=== PATIENT | male | born 1985 | race Caucasian/White ===

== ENCOUNTER 2019-02-01 22:30 | Emergency (ER) | payer OTHER ==
[2019-02-01 22:39] VITALS: BP 125/83; PULSE 86; O2SAT 100
--- NOTE | 2019-02-01 22:50 | ERPHSYRPT ---
- History of Present Illness Source: patient Exam Limitations: no limitations Physician History: patient is a 33-year-old white male who reports that he was wrestling at work approximately a week ago when he rolled his right ankle. He has been walking on it and working on it however he has swelling and discoloration from the distal fibular area on down to the foot. Pulses are intact sensation is intact he is able to move his toes and his ankle joint. He denies any other injury Method of Injury: twisted Occurred: last week Quality: constant, throbbing Severity of Pain-Max: moderate Severity of Pain-Current: moderate Lower Extremities Pain: leg: right, ankle: right Modifying Factors: Improves With: nothing Associated Symptoms: none Allergies/Adverse Reactions: No Known Drug Allergies Allergy (Unverified 02/01/19 22:50) Home Medications: Alprazolam [Xanax] 0.5 mg PO DAILY 02/01/19 [History] Dextroamphetamine/Amphetamine [Adderall 20 mg Tablet] 20 mg PO DAILY 02/01/19 [ History] - Review of Systems Constitutional: No Fever, No Chills Eyes: No Symptoms Ears, Nose, & Throat: No Symptoms Respiratory: No Cough, No Dyspnea Cardiac: No Chest Pain, No Edema, No Syncope Abdominal/Gastrointestinal: No Abdominal Pain, No Nausea, No Vomiting, No Diarrhea Genitourinary Symptoms: No Dysuria Musculoskeletal: Back Pain, Neck Pain, Joint Redness, Joint Pain, Joint Swelling Skin: No Rash Neurological: No Dizziness, No Focal Weakness, No Sensory Changes Psychological: No Symptoms Endocrine: No Symptoms All Other Systems: Reviewed and Negative - Nursing Vital Signs Nursing Vital Signs: Initial Vital Signs Temperature 97.5 F 02/01/19 22:37 Pulse Rate 86 02/01/19 22:37 Respiratory Rate 17 02/01/19 22:37 Blood Pressure 125/83 02/01/19 22:37 O2 Sat by Pulse Oximetry 100 02/01/19 22:37 Pain Scale Pain Intensity 7 - Physical Exam General Appearance: alert Eyes, Ears, Nose, Throat Exam: moist mucous membranes Neck Exam: non-tender, supple Cardiovascular/Respiratory Exam: chest non-tender, normal breath sounds, regular rate/rhythm, no respiratory distress Gastrointestinal/Abdominal Exam: non-tender, guarding Back Exam: normal inspection, No vertebral tenderness Legs Exam: right leg: bone tenderness, deformity, ecchymosis, pain, soft tissue tenderness, swelling Ankle Exam: right ankle: bone tenderness, deformity, ecchymosis, joint effusion , pain, soft tissue tenderness, swelling Foot Exam: right foot: ecchymosis Neuro/Tendon Exam: normal sensation, normal motor functions Mental Status Exam: alert, oriented x 3, cooperative Skin Exam: normal color, warm, dry SpO2: 100 - Radiology Exams Lower Leg X-ray Interpretation: Other (before x-rays could be obtained the patient left AMA) Ordered Tests: Active Orders 24 hr Category Date Time Status FOOT (MINIMUM 3 VIEWS) Stat Exams 02/01/19 Ordered LOWER LEG Stat Exams 02/01/19 Ordered - Progress Progress: unchanged - Departure Departure Disposition: AMA Clinical Impression: Ankle pain, right Condition: Stable Critical Care Time: No Additional Instructions: patient left the ER AMA before x-rays could be obtained
== END 2019-02-01 23:00 | disposition left against medical advice (07) ==
LOC: ED 22:30
DX: M25.571 Pain in right ankle and joints of right foot (principal); X50.1XXA Overexertion from prolonged static or awkward postures, initial encounter; Y93.72 Activity, wrestling
CPT/HCPCS: 99283

== ENCOUNTER 2019-03-17 05:25 | Emergency (ER) | payer OTHER ==
[2019-03-17 05:33] VITALS: O2SAT 100
[2019-03-17] MEDS ORDERED: Sodium Chloride 0.9% 1000 ML 1,000 ML IV STA (05:38)
[2019-03-17] MEDS ORDERED: TORAdol 30 mg Injection IV ONE (05:38)
[2019-03-17] MEDS ORDERED: Sodium Chloride 0.9% 1000 ML 1,000 ML ONE (05:43)
[2019-03-17] MEDS ORDERED: TORAdol 30 mg Injection ONE (05:43)
--- NOTE | 2019-03-17 05:52 | ERPHSYRPT ---
- History of Present Illness Source: patient Exam Limitations: no limitations Patient Subjective Stated Complaint: pt c/o pain to lt lower back radiating to front lower left abd. Triage Nursing Assessment: pt c/o lt lower back pain coming around to lt lower abd area. Pt is thrashing in bed, moaning, nauseaous. Pt gets relief with standing up and pacing. Abd rigid with hypo active bs x4 quad. tender on palpation. Physician History: Patient is a 33yo M who presents to ED with c/o acute onset left flank pain. Pain started about 2 hours [employer]. Pain described as an ache that radiates from flank to groin area. NO hematuria. No fevers. NO trauma. Pain is constant. NO specific worsening or improving factors. Allergies/Adverse Reactions: No Known Drug Allergies Allergy (Unverified 02/01/19 22:50) Home Medications: Alprazolam [Xanax] 0.5 mg PO DAILY 02/01/19 [History] Dextroamphetamine/Amphetamine [Adderall 20 mg Tablet] 20 mg PO DAILY 02/01/19 [ History] Hx Tetanus, Diphtheria Vaccination/Date Given: No Hx Influenza Vaccination/Date Given: No Hx Pneumococcal Vaccination/Date Given: No Immunizations Up to Date: No - Past Medical History Pertinent Past Medical History: Yes Neurological History: No Pertinent History ENT History: No Pertinent History Cardiac History: No Pertinent History Respiratory History: No Pertinent History Endocrine Medical History: No Pertinent History Musculoskeletal History: No Pertinent History GI Medical History: No Pertinent History History: No Pertinent History Psycho-Social History: Anxiety, Attention Deficit Disorder Male Reproductive Disorders: No Pertinent History - Past Surgical History Past Surgical History: Yes Neuro Surgical History: No Pertinent History Cardiac: No Pertinent History Respiratory: No Pertinent History Gastrointestinal: Hemorrhoidectomy Genitourinary: No Pertinent History Musculoskeletal: No Pertinent History Male Surgical History: No Pertinent History - Social History Smoking Status: Current every day smoker How long have you smoked: 10 yrs Exposure to second hand smoke: Yes Drug Use: none Patient Lives Alone: No - Review of Systems Constitutional: No Fever, No Chills Eyes: No Symptoms Ears, Nose, & Throat: No Symptoms Respiratory: No Cough, No Dyspnea Cardiac: No Chest Pain, No Edema, No Syncope Abdominal/Gastrointestinal: No Abdominal Pain, No Nausea, No Vomiting, No Diarrhea Genitourinary Symptoms: Flank Pain, No Dysuria Musculoskeletal: No Back Pain, No Neck Pain Skin: No Rash Neurological: No Dizziness, No Focal Weakness, No Sensory Changes Psychological: No Symptoms Endocrine: No Symptoms All Other Systems: Reviewed and Negative - Nursing Vital Signs Nursing Vital Signs: Initial Vital Signs Temperature 98.1 F 03/17/19 05:30 Pulse Rate 72 03/17/19 05:30 Respiratory Rate 20 03/17/19 05:30 Blood Pressure 133/78 03/17/19 05:30 O2 Sat by Pulse Oximetry 100 03/17/19 05:30 Pain Scale Pain Intensity [Left Abdomen] 7 Pain Intensity 4 - Physical Exam General Appearance: no apparent distress, alert Eye Exam: PERRL/EOMI Ears, Nose, Throat Exam: pharynx normal, moist mucous membranes Neck Exam: normal inspection, supple Respiratory Exam: normal breath sounds, lungs clear Cardiovascular Exam: regular rate/rhythm, No edema Gastrointestinal/Abdomen Exam: soft, No tenderness Back Exam: normal inspection, CVA tenderness, rash Extremity Exam: normal inspection, normal range of motion, No pedal edema Neurologic Exam: alert, oriented x 3, cooperative, sensation nml, No motor deficits Skin Exam: normal color, warm, dry, No rash SpO2 Interpretation: normal SpO2: 100 O2 Delivery: Room Air Ordered Tests: Active Orders 24 hr Category Date Time Status IV Insertion STAT Care 03/17/19 05:38 Active ABDOMEN AND PELVIS W/0 CONTRAS [CT] Stat Exams 03/17/19 05:40 Ordered CBC W DIFF Stat Lab 03/17/19 05:38 Completed CMP Stat Lab 03/17/19 05:38 Completed UA W/RFX UR CULTURE Stat Lab 03/17/19 05:38 Received Medication Summary Discontinued Medications Generic Name Dose Route Start Last Admin Trade Name Homeroq PRN Reason Stop Dose Admin Sodium Chloride 1,000 mls @ 999 mls/hr 03/17/19 05:38 03/17/19 05:45 Sodium Chloride 0.9% 1000 Ml IV 03/17/19 06:38 999 mls/hr .Q1H1M STA Administration Sodium Chloride Confirm 03/17/19 05:43 Sodium Chloride 0.9% 1000 Ml Administered 03/17/19 05:44 Dose 1,000 mls @ ud .ROUTE .STK-MED ONE Ketorolac Tromethamine 30 mg 03/17/19 05:38 03/17/19 05:46 Toradol 30 Mg Injection IV 03/17/19 05:39 30 mg STAT ONE Administration Ketorolac Tromethamine Confirm 03/17/19 05:43 Toradol 30 Mg Injection Administered 03/17/19 05:44 Dose 30 mg .ROUTE .STK-MED ONE Morphine Sulfate 4 mg 03/17/19 06:43 Morphine Sulfate 4 Mg Inj IV 03/17/19 06:44 STAT ONE Potassium Chloride 40 meq 03/17/19 06:37 Klor Con 10 Meq PO 03/17/19 06:38 STAT ONE Lab/Rad Data: Laboratory Result Diagrams 03/17/19 05:38 03/17/19 05:38 Laboratory Results 03/17/19 03/17/19 Range/Units 05:38 05:38 WBC 10.6 H (4.0-10.5) K/mm3 RBC 4.44 (4.1-5.6) M/mm3 Hgb 14.7 (12.5-18.0) gm/dl Hct 41.1 L (42-50) % MCV 92.6 (78-100) fl MCH 33.1 H (26-32) pg MCHC 35.8 (32-36) g/dl RDW 12.5 (11.5-14.0) % Plt Count 256 (150-450) K/mm3 MPV 10.0 (7.5-11.0) fl Gran % 51.1 (36.0-66.0) % Eos # (Auto) 0.38 (0-0.5) Absolute Lymphs (auto) 3.75 (1.0-4.6) Absolute Monos (auto) 0.97 (0.0-1.3) Lymphocytes % 35.5 (24.0-44.0) % Monocytes % 9.2 (0.0-12.0) % Eosinophils % 3.6 (0.00-5.0) % Basophils % 0.6 (0.0-0.4) % Absolute Granulocytes 5.41 (1.4-6.9) Basophils # 0.06 (0-0.4) Sodium 136 L (137-145) mmol/L Potassium 3.3 L (3.5-5.1) mmol/L Chloride 101 (98-107) mmol/L Carbon Dioxide 23 (22-30) mmol/L Anion Gap 15.4 H (5-15) MEQ/L BUN 19 (9-20) mg/dL Creatinine 1.07 (0.66-1.25) mg/dL Estimated GFR > 60.0 ML/MIN Glucose 105 (74-106) mg/dL Calcium 9.8 (8.4-10.2) mg/dL Total Bilirubin 0.50 (0.2-1.3) mg/dL AST 30 (17-59) U/L ALT 26 (0-50) U/L Alkaline Phosphatase 73 (38-126) U/L Serum Total Protein 7.4 (6.3-8.2) g/dL Albumin 4.7 (3.5-5.0) g/dL - Progress Progress Note: 03/17/19 06:45 Patient reassessed. Pain improved. Vitals stable. CT reveals ureterolithiasis Counseled pt/family regarding: lab results, diagnosis, rad results - Departure Departure Disposition: Home Clinical Impression: Flank pain, Ureterolithiasis Condition: Stable Critical Care Time: No Referrals: DOCTOR,NO FAMILY [Primary Care Provider] - Prescriptions: Hydrocodone/APAP 5/325 [Rowe 5/325 mg] 1 each PO Q6H PRN PRN #12 tablet MDD 4 PRN Reason: Pain Ketorolac Tromethamine [Toradol] 10 mg PO Q8H PRN PRN #20 tablet PRN Reason: Pain
[2019-03-17 05:57] LABS: Absolute Neutrophil Ct (ANC) 5.41 (1.4-6.9); BASOPHIL % 0.6 % (0.0-0.4); Basophil (Absolute #) 0.06 (0-0.4); Eosinophil % 3.6 % (0.00-5.0); Eosinophil (Absolute #) 0.38 (0-0.5); Hematocrit 41.1 % (42-50); Hemoglobin 14.7 gm/dl (12.5-18.0); Lymphocyte (Absolute #) 3.75 (1.0-4.6); Lymphocytes % 35.5 % (24.0-44.0); Mean Cell Volume 92.6 fl (78-100); Mean Corpuscular Hemoglobin 33.1 pg (26-32); Mean Corpuscular Hgb Concent. 35.8 g/dl (32-36); Monocyte (Absolute #) 0.97 (0.0-1.3); Monocytes % 9.2 % (0.0-12.0); Neutrophil % 51.1 % (36.0-66.0); Platelet Count 256 K/mm3 (150-450); Red Blood Count 4.44 M/mm3 (4.1-5.6); Red Cell Distribution Width 12.5 % (11.5-14.0); White Blood Count 10.6 K/mm3 (4.0-10.5)
[2019-03-17 06:10] LABS: ALBUMIN 4.7 g/dL (3.5-5.0); ALKALINE PHOSPHATASE 73 U/L (38-126); ANION GAP 15.4 MEQ/L (5-15); BLOOD UREA NITROGEN 19 mg/dL (9-20); CHLORIDE 101 mmol/L (98-107); Calcium 9.8 mg/dL (8.4-10.2); Carbon Dioxide 23 mmol/L (22-30); Creatinine 1 1.07 mg/dL (0.66-1.25); Glucose 105 mg/dL (74-106); Potassium 3.3 mmol/L (3.5-5.1); SGOT/AST 30 U/L (17-59); SGPT/ALT 26 U/L (0-50); SODIUM 136 mmol/L (137-145); Total Protein 7.4 g/dL (6.3-8.2)
[2019-03-17] MEDS ORDERED: Klor Con 10 MEQ PO ONE ×2 (06:37→06:45)
[2019-03-17] MEDS ORDERED: MORPHINE SULFATE 4 MG INJ IV ONE (06:43)
[2019-03-17] MEDS ORDERED: MORPHINE SULFATE 4 MG INJ ONE (06:45)
[2019-03-17 07:20] VITALS: BP 109/88; PULSE 76
--- NOTE | 2019-03-17 09:19 | XRAY ---
Indication: Left lower quadrant/flank pain. Difficulty urinating. Multiple contiguous axial images obtained through the abdomen and pelvis without contrast using renal stone protocol. Comparison: None Lung bases are clear. Heart is not enlarged. There is a 2-3 mm distal left ureter calculus just proximal to the UVJ (image 101, series 4). Proximal left ureter is slightly prominent up to 4-5 mm and there is mild hydronephrosis favoring partial obstructive uropathy. No perinephric fluid. Additional faint bilateral nephrocalcinosis. Noncontrasted stomach and bowel loops appear nonobstructed. Mild scattered colonic fecal debris throughout. Also mild sigmoid diverticulosis. Incidental calcified splenic granulomas. Remaining liver, gallbladder, pancreas, spleen, adrenal glands, kidneys, ureters, and bladder appear unremarkable for noncontrast exam. Mild scattered aortic calcifications without AAA. Osseous structures intact. Impression: 1. 2-3 mm distal left ureter calculus producing partial obstruction. Additional faint bilateral nephrocalcinosis. 2. Mild fecal stasis without obstruction, sigmoid diverticulosis, and evidence for granulomatous disease. Comment: Preliminary interpretation was made by [facility]. No discrepancy.
== END 2019-03-17 07:19 | disposition home or self-care (01) ==
LOC: ED 05:25
DX: R10.9 Unspecified abdominal pain (principal); N20.1 Calculus of ureter
CPT/HCPCS: 36000; 36415; 74176; 80053; 85025; 87086; 96374; 96375; 99284; J1885; J2270; A9270-GY

== ENCOUNTER 2019-12-05 20:22 | Observation (INO) | payer MEDICAID, OTHER ==
--- NOTE | 2019-12-05 20:30 | ERPHSYRPT ---
- History of Present Illness Time Seen by Provider: 12/05/19 20:25 Source: patient Exam Limitations: intoxication Physician History: Pt states for the past 3 years he has had daily suicidal thoughts. For the past 2 months pt states he has consumed 1/2 pint of vodka daily. Pt denies chest pain, shortness of air, fever, cough, abdominal pain; admits to numbness of his right 3rd, 4th & 5th toes for the past 18 months secondary to an injury of his right ankle. Allergies/Adverse Reactions: No Known Drug Allergies Allergy (Unverified 02/01/19 22:50) Home Medications: Alprazolam [Xanax] 0.5 mg PO DAILY 02/01/19 [History] Dextroamphetamine/Amphetamine [Adderall 20 mg Tablet] 20 mg PO DAILY 02/01/19 [History] Hx Tetanus, Diphtheria Vaccination/Date Given: No Hx Influenza Vaccination/Date Given: No Hx Pneumococcal Vaccination/Date Given: No Travel Risk - International Travel Have you traveled outside of the country in past 3 weeks: No - Coronavirus Screening Are you exhibiting any of the following symptoms?: No Close contact with a COVID-19 positive Pt in past 14-21 Days: No - Review of Systems Constitutional: No Fever Respiratory: No Cough, No Dyspnea Cardiac: No Chest Pain Abdominal/Gastrointestinal: No Abdominal Pain, No Nausea, No Vomiting, No Diarrhea Neurological: Sensory Changes (numbness of the right 3rd, 4th & 5th toes for the past 18 months.) Psychological: Suicidal Ideations All Other Systems: Reviewed and Negative - Past Medical History Pertinent Past Medical History: Yes Neurological History: No Pertinent History ENT History: No Pertinent History Cardiac History: No Pertinent History Respiratory History: No Pertinent History Endocrine Medical History: No Pertinent History Musculoskeletal History: No Pertinent History GI Medical History: No Pertinent History History: No Pertinent History Psycho-Social History: Anxiety, Attention Deficit Disorder Male Reproductive Disorders: No Pertinent History - Past Surgical History Past Surgical History: Yes Neuro Surgical History: No Pertinent History Cardiac: No Pertinent History Respiratory: No Pertinent History Gastrointestinal: Hemorrhoidectomy Genitourinary: No Pertinent History Musculoskeletal: No Pertinent History Male Surgical History: No Pertinent History - Social History Smoking Status: Current every day smoker How long have you smoked: 10 yrs Exposure to second hand smoke: Yes Drug Use: none Patient Lives Alone: No - Nursing Vital Signs Nursing Vital Signs: Initial Vital Signs Temperature 98.6 F 12/05/19 20:36 Pulse Rate 104 H 12/05/19 20:36 Respiratory Rate 18 12/05/19 20:36 Blood Pressure 136/92 12/05/19 20:36 O2 Sat by Pulse Oximetry 99 12/05/19 20:36 Pain Scale Pain Intensity 0 - Physical Exam General Appearance: alert Eye Exam: PERRL/EOMI Ears, Nose, Throat Exam: TMs normal, pharynx normal Neck Exam: normal inspection Respiratory Exam: lungs clear Cardiovascular Exam: normal heart sounds Gastrointestinal/Abdomen Exam: soft, normal bowel sounds Back Exam: normal inspection Extremity Exam: No pedal edema Neurologic Exam: alert, cooperative, slurred speech, other (decreased sensation of right 3rd, 4th & 5th toes(ongoing for 18 months).), No motor deficits Skin Exam: warm, dry SpO2 Interpretation: normal SpO2: 98 O2 Delivery: Room Air - Course Nursing assessment & vital signs reviewed: Yes EKG Interpreted by Me: RATE (98), Sinus Rhythm, NORMAL AXIS, NORMAL INTERVALS - Radiology Exams Chest X-ray Interpretation: Interpreted by me, No Pneumonia Ordered Tests: Active Orders 24 hr Category Date Time Status Hot Repairman STAT Care 12/05/19 20:32 Active EKG-ER Only STAT Care 12/05/19 20:31 Active IV Insertion STAT Care 12/05/19 20:31 Active Pulse Oximetry (ED) STAT Care 12/05/19 20:31 Active CHEST 1 VIEW (PORTABLE) Stat Exams 12/05/19 20:32 Taken ACETAMINOPHEN Stat Lab 12/05/19 20:45 Completed CBC W DIFF Stat Lab 12/05/19 20:45 Completed CMP Stat Lab 12/05/19 20:45 Completed D-DIMER QUANTITATIVE Stat Lab 12/05/19 20:45 Completed ETHYL ALCOHOL Stat Lab 12/05/19 20:45 Completed MAGNESIUM Stat Lab 12/05/19 20:45 Completed NT PRO BNP Stat Lab 12/05/19 20:45 Completed SALICYLATE Stat Lab 12/05/19 20:45 Completed TROPONIN Q3H Lab 12/05/19 20:45 Completed TROPONIN Q3H Lab 12/05/19 23:45 Ordered TROPONIN Q3H Lab 12/06/19 02:45 Ordered TROPONIN Q3H Lab 12/06/19 05:45 Ordered TROPONIN Q3H Lab 12/06/19 08:45 Ordered UA W/RFX UR CULTURE Stat Lab 12/05/19 21:26 Completed Urine Triage Profile Stat Lab 12/05/19 21:26 Completed Medication Summary Discontinued Medications Generic Name Dose Route Start Last Admin Trade Name Marilyn PRN Reason Stop Dose Admin Sodium Chloride 1,000 mls @ 999 mls/hr 12/05/19 20:31 12/05/19 22:30 Sodium Chloride 0.9% 1000 Ml IV 12/05/19 21:31 Infused .Q1H1M STA Infusion Sodium Chloride Confirm 12/05/19 20:40 Sodium Chloride 0.9% 1000 Ml Administered 12/05/19 20:41 Dose 1,000 mls @ ud .ROUTE .STK-MED ONE Potassium Bicarbonate 25 meq 12/05/19 22:12 12/05/19 22:19 K-Lyte 25 Meq PO 12/05/19 22:13 25 meq STAT ONE Administration Potassium Bicarbonate Confirm 12/05/19 22:18 K-Lyte 25 Meq Administered 12/05/19 22:19 Dose 25 meq .ROUTE .STK-MED ONE Lab/Rad Data: Laboratory Result Diagrams 12/05/19 20:45 12/05/19 20:45 Laboratory Results 12/05/19 12/05/19 12/05/19 Range/Units 21:26 21:26 20:45 WBC (4.0-10.5) K/mm3 RBC (4.1-5.6) M/mm3 Hgb (12.5-18.0) gm/dl Hct (42-50) % MCV (78-100) fl MCH (26-32) pg MCHC (32-36) g/dl RDW (11.5-14.0) % Plt Count (150-450) K/mm3 MPV (7.5-11.0) fl Gran % (36.0-66.0) % Eos # (Auto) (0-0.5) Absolute Lymphs (auto) (1.0-4.6) Absolute Monos (auto) (0.0-1.3) Lymphocytes % (24.0-44.0) % Monocytes % (0.0-12.0) % Eosinophils % (0.00-5.0) % Basophils % (0.0-0.4) % Absolute Granulocytes (1.4-6.9) Basophils # (0-0.4) D-Dimer (215-500) ng/mL Sodium (137-145) mmol/L Potassium (3.5-5.1) mmol/L Chloride (98-107) mmol/L Carbon Dioxide (22-30) mmol/L Anion Gap (5-15) MEQ/L BUN (9-20) mg/dL Creatinine (0.66-1.25) mg/dL Estimated GFR ML/MIN Glucose (74-106) mg/dL Calcium (8.4-10.2) mg/dL Magnesium (1.6-2.3) mg/dL Total Bilirubin (0.2-1.3) mg/dL AST (17-59) U/L ALT (0-50) U/L Alkaline Phosphatase (38-126) U/L Troponin I < 0.012 (0.000-0.034) ng/mL NT-Pro-B Natriuret Pep (0-450) pg/mL Serum Total Protein (6.3-8.2) g/dL Albumin (3.5-5.0) g/dL Urine Color YELLOW (YELLOW) Urine Appearance CLEAR (CLEAR) Urine pH 5.0 (5-6) Ur Specific Lund 1.012 (1.005-1.025) Urine Protein NEGATIVE (Negative) Urine Ketones NEGATIVE (NEGATIVE) Urine Blood SMALL (0-5) Eben/ul Urine Nitrite NEGATIVE (NEGATIVE) Urine Bilirubin NEGATIVE (NEGATIVE) Urine Urobilinogen NEGATIVE (0-1) mg/dL Ur Leukocyte Esterase NEGATIVE (NEGATIVE) Urine WBC (Auto) NONE (0-5) /HPF Urine RBC (Auto) 0-2 (0-2) /HPF U Epithel Cells (Auto) NONE (FEW) /HPF Urine Bacteria (Auto) NONE (NEGATIVE) /HPF Urine Culture Reflexed NO (NO) Urine Glucose NEGATIVE (NEGATIVE) mg/dL Salicylates (2-20) mg/dL Urine Opiates Level NEGATIVE (NEGATIVE) Ur Methadone NEGATIVE (NEGATIVE) Acetaminophen (10-30) ug/ml Urine Barbiturates NEGATIVE (NEGATIVE) Ur Phencyclidine (PCP) NEGATIVE (NEGATIVE) Urine Amphetamine NEGATIVE (NEGATIVE) U Benzodiazepine Level NEGATIVE (NEGATIVE) Urine Cocaine NEGATIVE (NEGATIVE) Urine Marijuana (THC) POSITIVE (NEGATIVE) Ethyl Alcohol (0-10) mg/dL 12/05/19 12/05/19 12/05/19 Range/Units 20:45 20:45 20:45 WBC (4.0-10.5) K/mm3 RBC (4.1-5.6) M/mm3 Hgb (12.5-18.0) gm/dl Hct (42-50) % MCV (78-100) fl MCH (26-32) pg MCHC (32-36) g/dl RDW (11.5-14.0) % Plt Count (150-450) K/mm3 MPV (7.5-11.0) fl Gran % (36.0-66.0) % Eos # (Auto) (0-0.5) Absolute Lymphs (auto) (1.0-4.6) Absolute Monos (auto) (0.0-1.3) Lymphocytes % (24.0-44.0) % Monocytes % (0.0-12.0) % Eosinophils % (0.00-5.0) % Basophils % (0.0-0.4) % Absolute Granulocytes (1.4-6.9) Basophils # (0-0.4) D-Dimer 428 (215-500) ng/mL Sodium 145 (137-145) mmol/L Potassium 3.4 L (3.5-5.1) mmol/L Chloride 112 H (98-107) mmol/L Carbon Dioxide 23 (22-30) mmol/L Anion Gap 13.6 (5-15) MEQ/L BUN 6 L (9-20) mg/dL Creatinine 0.86 (0.66-1.25) mg/dL Estimated GFR > 60.0 ML/MIN Glucose 112 H (74-106) mg/dL Calcium 8.0 L (8.4-10.2) mg/dL Magnesium 2.2 (1.6-2.3) mg/dL Total Bilirubin 0.20 (0.2-1.3) mg/dL AST 59 (17-59) U/L ALT 37 (0-50) U/L Alkaline Phosphatase 85 (38-126) U/L Troponin I (0.000-0.034) ng/mL NT-Pro-B Natriuret Pep 23.2 (0-450) pg/mL Serum Total Protein 7.0 (6.3-8.2) g/dL Albumin 4.4 (3.5-5.0) g/dL Urine Color (YELLOW) Urine Appearance (CLEAR) Urine pH (5-6) Ur Specific Lund (1.005-1.025) Urine Protein (Negative) Urine Ketones (NEGATIVE) Urine Blood (0-5) Eben/ul Urine Nitrite (NEGATIVE) Urine Bilirubin (NEGATIVE) Urine Urobilinogen (0-1) mg/dL Ur Leukocyte Esterase (NEGATIVE) Urine WBC (Auto) (0-5) /HPF Urine RBC (Auto) (0-2) /HPF U Epithel Cells (Auto) (FEW) /HPF Urine Bacteria (Auto) (NEGATIVE) /HPF Urine Culture Reflexed (NO) Urine Glucose (NEGATIVE) mg/dL Salicylates < 1.0 L (2-20) mg/dL Urine Opiates Level (NEGATIVE) Ur Methadone (NEGATIVE) Acetaminophen < 10 L (10-30) ug/ml Urine Barbiturates (NEGATIVE) Ur Phencyclidine (PCP) (NEGATIVE) Urine Amphetamine (NEGATIVE) U Benzodiazepine Level (NEGATIVE) Urine Cocaine (NEGATIVE) Urine Marijuana (THC) (NEGATIVE) Ethyl Alcohol 438 H (0-10) mg/dL 12/05/19 Range/Units 20:45 WBC 5.7 (4.0-10.5) K/mm3 RBC 4.50 (4.1-5.6) M/mm3 Hgb 15.5 (12.5-18.0) gm/dl Hct 45.2 (42-50) % MCV 100.4 H (78-100) fl MCH 34.4 H (26-32) pg MCHC 34.3 (32-36) g/dl RDW 13.3 (11.5-14.0) % Plt Count 288 (150-450) K/mm3 MPV 9.4 (7.5-11.0) fl Gran % 44.2 (36.0-66.0) % Eos # (Auto) 0.08 (0-0.5) Absolute Lymphs (auto) 2.40 (1.0-4.6) Absolute Monos (auto) 0.65 (0.0-1.3) Lymphocytes % 42.0 (24.0-44.0) % Monocytes % 11.4 (0.0-12.0) % Eosinophils % 1.4 (0.00-5.0) % Basophils % 1.0 (0.0-0.4) % Absolute Granulocytes 2.53 (1.4-6.9) Basophils # 0.06 (0-0.4) D-Dimer (215-500) ng/mL Sodium (137-145) mmol/L Potassium (3.5-5.1) mmol/L Chloride (98-107) mmol/L Carbon Dioxide (22-30) mmol/L Anion Gap (5-15) MEQ/L BUN (9-20) mg/dL Creatinine (0.66-1.25) mg/dL Estimated GFR ML/MIN Glucose (74-106) mg/dL Calcium (8.4-10.2) mg/dL Magnesium (1.6-2.3) mg/dL Total Bilirubin (0.2-1.3) mg/dL AST (17-59) U/L ALT (0-50) U/L Alkaline Phosphatase (38-126) U/L Troponin I (0.000-0.034) ng/mL NT-Pro-B Natriuret Pep (0-450) pg/mL Serum Total Protein (6.3-8.2) g/dL Albumin (3.5-5.0) g/dL Urine Color (YELLOW) Urine Appearance (CLEAR) Urine pH (5-6) Ur Specific Lund (1.005-1.025) Urine Protein (Negative) Urine Ketones (NEGATIVE) Urine Blood (0-5) Eben/ul Urine Nitrite (NEGATIVE) Urine Bilirubin (NEGATIVE) Urine Urobilinogen (0-1) mg/dL Ur Leukocyte Esterase (NEGATIVE) Urine WBC (Auto) (0-5) /HPF Urine RBC (Auto) (0-2) /HPF U Epithel Cells (Auto) (FEW) /HPF Urine Bacteria (Auto) (NEGATIVE) /HPF Urine Culture Reflexed (NO) Urine Glucose (NEGATIVE) mg/dL Salicylates (2-20) mg/dL Urine Opiates Level (NEGATIVE) Ur Methadone (NEGATIVE) Acetaminophen (10-30) ug/ml Urine Barbiturates (NEGATIVE) Ur Phencyclidine (PCP) (NEGATIVE) Urine Amphetamine (NEGATIVE) U Benzodiazepine Level (NEGATIVE) Urine Cocaine (NEGATIVE) Urine Marijuana (THC) (NEGATIVE) Ethyl Alcohol (0-10) mg/dL - Progress Progress: unchanged Discussed with : Other (Spoke with Dr. Valles - obs ICU.) Will see patient in: hospital (observation) - Departure Departure Disposition: Observation Clinical Impression: Alcohol intoxication, Suicidal ideation Condition: Stable Critical Care Time: No Referrals: DOCTOR,NO FAMILY [Primary Care Provider] -
[2019-12-05] MEDS ORDERED: Sodium Chloride 0.9% 1000 ML 1,000 ML IV STA (20:31)
[2019-12-05] MEDS ORDERED: Sodium Chloride 0.9% 1000 ML 1,000 ML ONE (20:40)
[2019-12-05 20:54] LABS: Absolute Neutrophil Ct (ANC) 2.53 (1.4-6.9); Basophil (Absolute #) 0.06 (0-0.4); Eosinophil % 1.4 % (0.00-5.0); Eosinophil (Absolute #) 0.08 (0-0.5); Hematocrit 45.2 % (42-50); Hemoglobin 15.5 gm/dl (12.5-18.0); Mean Cell Volume 100.4 fl (78-100); Mean Corpuscular Hemoglobin 34.4 pg (26-32); Mean Corpuscular Hgb Concent. 34.3 g/dl (32-36); Mean Platelet Volume 9.4 fl (7.5-11.0); Monocyte (Absolute #) 0.65 (0.0-1.3); Monocytes % 11.4 % (0.0-12.0); Neutrophil % 44.2 % (36.0-66.0); Platelet Count 288 K/mm3 (150-450); Red Cell Distribution Width 13.3 % (11.5-14.0); White Blood Count 5.7 K/mm3 (4.0-10.5)
[2019-12-05 21:10] LABS: ALBUMIN 4.4 g/dL (3.5-5.0); ALKALINE PHOSPHATASE 85 U/L (38-126); ANION GAP 13.6 MEQ/L (5-15); BLOOD UREA NITROGEN 6 mg/dL (9-20); CHLORIDE 112 mmol/L (98-107); Carbon Dioxide 23 mmol/L (22-30); Creatinine 1 0.86 mg/dL (0.66-1.25); EST GLOMERULAR FILTRATION RATE > 60.0 ML/MIN; Glucose 112 mg/dL (74-106); Potassium 3.4 mmol/L (3.5-5.1); SGOT/AST 59 U/L (17-59); SGPT/ALT 37 U/L (0-50); SODIUM 145 mmol/L (137-145)
[2019-12-05 21:18] LABS: MAGNESIUM 2.2 mg/dL (1.6-2.3); NT PRO BNP 23.2 pg/mL (0-450)
[2019-12-05 21:22] LABS: ACETAMINOPHEN < 10 ug/ml (10-30); SALICYLATE < 1.0 mg/dL (2-20)
[2019-12-05 21:23] LABS: ETHYL ALCOHOL 438 mg/dL (0-10)
[2019-12-05 21:58] LABS: Appearance CLEAR (CLEAR); Bilirubin NEGATIVE (NEGATIVE); Blood SMALL Ery/ul (0-5); Glucose NEGATIVE (NEGATIVE); Ketones NEGATIVE (NEGATIVE); Leukocyte Esterase NEGATIVE (NEGATIVE); Nitrite NEGATIVE (NEGATIVE); Protein,Urine Dip NEGATIVE (Negative); RBC 0-2 /HPF (0-2); Specific Gravity 1.012 (1.005-1.025); Urobilinogen NEGATIVE mg/dL (0-1)
[2019-12-05 22:08] LABS: Amphetamine,Urine NEGATIVE (NEGATIVE); Barbiturate,Urine NEGATIVE (NEGATIVE); Benzodiazepine,Urine NEGATIVE (NEGATIVE); Cocaine,Urine NEGATIVE (NEGATIVE); Methadone,Urine NEGATIVE (NEGATIVE); Opiate,Urine NEGATIVE (NEGATIVE); PCP,Urine NEGATIVE (NEGATIVE); THC,Urine POSITIVE (NEGATIVE)
[2019-12-05] MEDS ORDERED: K-LYTE 25 MEQ PO ONE (22:12)
[2019-12-05] MEDS ORDERED: K-LYTE 25 MEQ ONE (22:18)
[2019-12-05] MEDS ORDERED: Ativan 2 MG/1 ML VIAL IV PRN (22:42)
[2019-12-05] MEDS: Ativan 2 MG/1 ML VIAL IV PRN (23:47)
[2019-12-06 05:48] LABS: Absolute Neutrophil Ct (ANC) 1.95 (1.4-6.9); BASOPHIL % 0.8 % (0.0-0.4); Basophil (Absolute #) 0.04 (0-0.4); Eosinophil % 1.6 % (0.00-5.0); Eosinophil (Absolute #) 0.08 (0-0.5); Hematocrit 39.7 % (42-50); Hemoglobin 13.5 gm/dl (12.5-18.0); Lymphocyte (Absolute #) 2.46 (1.0-4.6); Mean Cell Volume 102.1 fl (78-100); Mean Corpuscular Hemoglobin 34.7 pg (26-32); Mean Platelet Volume 8.8 fl (7.5-11.0); Monocyte (Absolute #) 0.59 (0.0-1.3); Monocytes % 11.5 % (0.0-12.0); Neutrophil % 38.1 % (36.0-66.0); Platelet Count 213 K/mm3 (150-450); Red Blood Count 3.89 M/mm3 (4.1-5.6); Red Cell Distribution Width 13.2 % (11.5-14.0); White Blood Count 5.1 K/mm3 (4.0-10.5)
[2019-12-06 06:00] LABS: ALBUMIN 3.7 g/dL (3.5-5.0); ALKALINE PHOSPHATASE 60 U/L (38-126); ANION GAP 7.8 MEQ/L (5-15); BLOOD UREA NITROGEN 5 mg/dL (9-20); CHLORIDE 109 mmol/L (98-107); Calcium 7.5 mg/dL (8.4-10.2); Carbon Dioxide 27 mmol/L (22-30); Creatinine 1 0.77 mg/dL (0.66-1.25); EST GLOMERULAR FILTRATION RATE > 60.0 ML/MIN; ETHYL ALCOHOL 241 mg/dL (0-10); Glucose 98 mg/dL (74-106); Potassium 3.6 mmol/L (3.5-5.1); SGOT/AST 52 U/L (17-59); SGPT/ALT 35 U/L (0-50); SODIUM 140 mmol/L (137-145); Total Protein 5.9 g/dL (6.3-8.2)
[2019-12-06 08:06] VITALS: O2SAT 98
[2019-12-06] MEDS: Ativan 2 MG/1 ML VIAL IV PRN (08:08)
--- NOTE | 2019-12-06 08:44 | XRAY ---
Indication: Tachycardia. Comparison: March 05, 2018. Portable chest again demonstrates normal heart, lungs, and bony thorax.
[2019-12-06 09:22] VITALS: PULSE 93
[2019-12-06 11:01] LABS: Absolute Neutrophil Ct (ANC) 2.76 (1.4-6.9); BASOPHIL % 1.3 % (0.0-0.4); Basophil (Absolute #) 0.07 (0-0.4); Eosinophil % 1.1 % (0.00-5.0); Eosinophil (Absolute #) 0.06 (0-0.5); Hemoglobin 13.6 gm/dl (12.5-18.0); Lymphocyte (Absolute #) 2.02 (1.0-4.6); Lymphocytes % 37.3 % (24.0-44.0); Mean Cell Volume 101.3 fl (78-100); Mean Corpuscular Hemoglobin 34.4 pg (26-32); Mean Platelet Volume 9.3 fl (7.5-11.0); Monocyte (Absolute #) 0.51 (0.0-1.3); Monocytes % 9.4 % (0.0-12.0); Neutrophil % 50.9 % (36.0-66.0); Platelet Count 226 K/mm3 (150-450); Red Blood Count 3.95 M/mm3 (4.1-5.6); Red Cell Distribution Width 12.9 % (11.5-14.0); White Blood Count 5.4 K/mm3 (4.0-10.5)
[2019-12-06 11:09] LABS: ALBUMIN 3.9 g/dL (3.5-5.0); ALKALINE PHOSPHATASE 63 U/L (38-126); AMYLASE 80 U/L (30-110); ANION GAP 10.1 MEQ/L (5-15); BLOOD UREA NITROGEN 5 mg/dL (9-20); CHLORIDE 107 mmol/L (98-107); Calcium 7.7 mg/dL (8.4-10.2); Carbon Dioxide 25 mmol/L (22-30); Creatinine 1 0.73 mg/dL (0.66-1.25); EST GLOMERULAR FILTRATION RATE > 60.0 ML/MIN; ETHYL ALCOHOL 142 mg/dL (0-10); Glucose 88 mg/dL (74-106); LIPASE 40 U/L (23-300); Potassium 3.8 mmol/L (3.5-5.1); SGOT/AST 57 U/L (17-59); SGPT/ALT 36 U/L (0-50); SODIUM 138 mmol/L (137-145); Total Protein 6.1 g/dL (6.3-8.2)
[2019-12-06 12:37] VITALS: BP 125/89
--- NOTE | 2019-12-06 12:41 | PCM.SSS ---
History of Present Illness - Chief Complaint Chief Complaint: ALCOHOL INTOXICATION, SUICIDAL IDEATION History of Present Illness: is a 34 year old male who was admitted to [facility] from ER with alcohol intoxication. Patient states he has been drinking ETOH since age 17 yrs and has been on a drinking binge Vodka for 2 and 1/2 months after breakup with longtime girlfriend. He has had suicidal thoughts and came to ER because he wants help. He denies IV drug use. - Review of Systems Constitutional: Other (no fever) Eyes: No Symptoms Ears, Nose, & Throat: No Symptoms Respiratory: No Symptoms Cardiac: No Symptoms Abdominal/Gastrointestinal: No Symptoms Genitourinary Symptoms: No Symptoms Musculoskeletal: No Symptoms, Other (had some finger tingling) Skin: No Symptoms Neurological: Other (denies LOC or seizure Hx) Endocrine: No Symptoms Hematologic/Lymphatic: No Symptoms Immunological/Allergic: No Symptoms Medications & Allergies Home Medications: Home Medication List No Reportable Medications [No Reported Medications] 12/05/19 [History Confirmed 12/05/19] Allergies/Adverse Reactions: Allergies Allergy/AdvReac Type Severity Reaction Status Date / Time No Known Drug Allergies Allergy Unverified 12/05/19 23:40 - Past Medical History Past Medical History: Yes Neurological History: No Pertinent History ENT History: No Pertinent History Cardiac History: No Pertinent History Respiratory History: No Pertinent History Endocrine Medical History: No Pertinent History Musculoskelatal History: No Pertinent History GI Medical History: Hemorrhoids History: No Pertinent History Pyscho-Social History: Anxiety, Attention Deficit Disorder Male Reproductive Disorders: No Pertinent History - Past Surgical History Past Surgical History: Yes Neuro Surgical History: No Pertinent History Cardiac History: No Pertinent History Respiratory Surgery: No Pertinent History GI Surgical History: Hemorrhoidectomy Genitourinary Surgical Hx: No Pertinent History Musculskeletal Surgical Hx: No Pertinent History Male Surgical History: No Pertinent History - Social History Smoking Status: Current every day smoker How long have you smoked: 10 YEARS Exposure to second hand smoke: No Alcohol: Heavy, Daily Drug Use: marijuana, methamphetamines - Physical Exam Vital Signs: Vital Signs - 24 hr Temp Pulse Resp BP Pulse Ox 12/06/19 12:00 93 H 12/06/19 08:00 93 H 16 104/69 98 12/06/19 04:00 97.9 F 74 17 121/75 97 12/06/19 00:01 90 24 126/90 94 L 12/05/19 23:16 98.3 F 98 H 14 133/106 96 12/05/19 23:15 98.3 F 98 H 14 133/106 96 12/05/19 22:41 98 12/05/19 22:11 88 20 119/73 96 12/05/19 21:25 106 H 136/97 99 12/05/19 20:38 98 12/05/19 20:36 98.6 F 104 H 18 136/92 99 General Appearance: no apparent distress Neurologic Exam: alert, oriented x 3, cooperative, normal mood/affect (exam at 1235) Eye Exam: PERRL/EOMI, eyes nml inspection Ears, Nose, Throat Exam: pharynx normal Neck Exam: normal inspection Respiratory Exam: normal breath sounds Cardiovascular Exam: regular rate/rhythm Gastrointestinal/Abdomen Exam: soft, normal bowel sounds (nontender), other (liver -do not appreciate enlarged) Rectal Exam: not done Back Exam: normal inspection Extremity Exam: normal inspection (tatoos) Skin Exam: normal color, warm, dry Results - Labs Lab/Micro Results: Lab Results-Last 24 Hours 12/05/19 12/05/19 12/05/19 Range/Units 20:45 20:45 20:45 WBC 5.7 (4.0-10.5) K/mm3 RBC 4.50 (4.1-5.6) M/mm3 Hgb 15.5 (12.5-18.0) gm/dl Hct 45.2 (42-50) % MCV 100.4 H (78-100) fl MCH 34.4 H (26-32) pg MCHC 34.3 (32-36) g/dl RDW 13.3 (11.5-14.0) % Plt Count 288 (150-450) K/mm3 MPV 9.4 (7.5-11.0) fl Gran % 44.2 (36.0-66.0) % Eos # (Auto) 0.08 (0-0.5) Absolute Lymphs (auto) 2.40 (1.0-4.6) Absolute Monos (auto) 0.65 (0.0-1.3) Lymphocytes % 42.0 (24.0-44.0) % Monocytes % 11.4 (0.0-12.0) % Eosinophils % 1.4 (0.00-5.0) % Basophils % 1.0 (0.0-0.4) % Absolute Granulocytes 2.53 (1.4-6.9) Basophils # 0.06 (0-0.4) D-Dimer (215-500) ng/mL Sodium 145 (137-145) mmol/L Potassium 3.4 L (3.5-5.1) mmol/L Chloride 112 H (98-107) mmol/L Carbon Dioxide 23 (22-30) mmol/L Anion Gap 13.6 (5-15) MEQ/L BUN 6 L (9-20) mg/dL Creatinine 0.86 (0.66-1.25) mg/dL Estimated GFR > 60.0 ML/MIN Glucose 112 H (74-106) mg/dL Calcium 8.0 L (8.4-10.2) mg/dL Magnesium 2.2 (1.6-2.3) mg/dL Total Bilirubin 0.20 (0.2-1.3) mg/dL AST 59 (17-59) U/L ALT 37 (0-50) U/L Alkaline Phosphatase 85 (38-126) U/L Troponin I (0.000-0.034) ng/mL NT-Pro-B Natriuret Pep 23.2 (0-450) pg/mL Serum Total Protein 7.0 (6.3-8.2) g/dL Albumin 4.4 (3.5-5.0) g/dL Amylase (30-110) U/L Lipase (23-300) U/L Urine Color (YELLOW) Urine Appearance (CLEAR) Urine pH (5-6) Ur Specific [place] (1.005-1.025) Urine Protein (Negative) Urine Ketones (NEGATIVE) Urine Blood (0-5) Eben/ul Urine Nitrite (NEGATIVE) Urine Bilirubin (NEGATIVE) Urine Urobilinogen (0-1) mg/dL Ur Leukocyte Esterase (NEGATIVE) Urine WBC (Auto) (0-5) /HPF Urine RBC (Auto) (0-2) /HPF U Epithel Cells (Auto) (FEW) /HPF Urine Bacteria (Auto) (NEGATIVE) /HPF Urine Culture Reflexed (NO) Urine Glucose (NEGATIVE) mg/dL Salicylates < 1.0 L (2-20) mg/dL Urine Opiates Level (NEGATIVE) Ur Methadone (NEGATIVE) Acetaminophen < 10 L (10-30) ug/ml Urine Barbiturates (NEGATIVE) Ur Phencyclidine (PCP) (NEGATIVE) Urine Amphetamine (NEGATIVE) U Benzodiazepine Level (NEGATIVE) Urine Cocaine (NEGATIVE) Urine Marijuana (THC) (NEGATIVE) Ethyl Alcohol 438 H (0-10) mg/dL 12/05/19 12/05/19 12/05/19 Range/Units 20:45 20:45 21:26 WBC (4.0-10.5) K/mm3 RBC (4.1-5.6) M/mm3 Hgb (12.5-18.0) gm/dl Hct (42-50) % MCV (78-100) fl MCH (26-32) pg MCHC (32-36) g/dl RDW (11.5-14.0) % Plt Count (150-450) K/mm3 MPV (7.5-11.0) fl Gran % (36.0-66.0) % Eos # (Auto) (0-0.5) Absolute Lymphs (auto) (1.0-4.6) Absolute Monos (auto) (0.0-1.3) Lymphocytes % (24.0-44.0) % Monocytes % (0.0-12.0) % Eosinophils % (0.00-5.0) % Basophils % (0.0-0.4) % Absolute Granulocytes (1.4-6.9) Basophils # (0-0.4) D-Dimer 428 (215-500) ng/mL Sodium (137-145) mmol/L Potassium (3.5-5.1) mmol/L Chloride (98-107) mmol/L Carbon Dioxide (22-30) mmol/L Anion Gap (5-15) MEQ/L BUN (9-20) mg/dL Creatinine (0.66-1.25) mg/dL Estimated GFR ML/MIN Glucose (74-106) mg/dL Calcium (8.4-10.2) mg/dL Magnesium (1.6-2.3) mg/dL Total Bilirubin (0.2-1.3) mg/dL AST (17-59) U/L ALT (0-50) U/L Alkaline Phosphatase (38-126) U/L Troponin I < 0.012 (0.000-0.034) ng/mL NT-Pro-B Natriuret Pep (0-450) pg/mL Serum Total Protein (6.3-8.2) g/dL Albumin (3.5-5.0) g/dL Amylase (30-110) U/L Lipase (23-300) U/L Urine Color YELLOW (YELLOW) Urine Appearance CLEAR (CLEAR) Urine pH 5.0 (5-6) Ur Specific [place] 1.012 (1.005-1.025) Urine Protein NEGATIVE (Negative) Urine Ketones NEGATIVE (NEGATIVE) Urine Blood SMALL (0-5) Eben/ul Urine Nitrite NEGATIVE (NEGATIVE) Urine Bilirubin NEGATIVE (NEGATIVE) Urine Urobilinogen NEGATIVE (0-1) mg/dL Ur Leukocyte Esterase NEGATIVE (NEGATIVE) Urine WBC (Auto) NONE (0-5) /HPF Urine RBC (Auto) 0-2 (0-2) /HPF U Epithel Cells (Auto) NONE (FEW) /HPF Urine Bacteria (Auto) NONE (NEGATIVE) /HPF Urine Culture Reflexed NO (NO) Urine Glucose NEGATIVE (NEGATIVE) mg/dL Salicylates (2-20) mg/dL Urine Opiates Level (NEGATIVE) Ur Methadone (NEGATIVE) Acetaminophen (10-30) ug/ml Urine Barbiturates (NEGATIVE) Ur Phencyclidine (PCP) (NEGATIVE) Urine Amphetamine (NEGATIVE) U Benzodiazepine Level (NEGATIVE) Urine Cocaine (NEGATIVE) Urine Marijuana (THC) (NEGATIVE) Ethyl Alcohol (0-10) mg/dL 12/05/19 12/05/19 12/06/19 Range/Units 21:26 23:48 05:45 WBC (4.0-10.5) K/mm3 RBC (4.1-5.6) M/mm3 Hgb (12.5-18.0) gm/dl Hct (42-50) % MCV (78-100) fl MCH (26-32) pg MCHC (32-36) g/dl RDW (11.5-14.0) % Plt Count (150-450) K/mm3 MPV (7.5-11.0) fl Gran % (36.0-66.0) % Eos # (Auto) (0-0.5) Absolute Lymphs (auto) (1.0-4.6) Absolute Monos (auto) (0.0-1.3) Lymphocytes % (24.0-44.0) % Monocytes % (0.0-12.0) % Eosinophils % (0.00-5.0) % Basophils % (0.0-0.4) % Absolute Granulocytes (1.4-6.9) Basophils # (0-0.4) D-Dimer (215-500) ng/mL Sodium (137-145) mmol/L Potassium (3.5-5.1) mmol/L Chloride (98-107) mmol/L Carbon Dioxide (22-30) mmol/L Anion Gap (5-15) MEQ/L BUN (9-20) mg/dL Creatinine (0.66-1.25) mg/dL Estimated GFR ML/MIN Glucose (74-106) mg/dL Calcium (8.4-10.2) mg/dL Magnesium (1.6-2.3) mg/dL Total Bilirubin (0.2-1.3) mg/dL AST (17-59) U/L ALT (0-50) U/L Alkaline Phosphatase (38-126) U/L Troponin I < 0.012 < 0.012 (0.000-0.034) ng/mL NT-Pro-B Natriuret Pep (0-450) pg/mL Serum Total Protein (6.3-8.2) g/dL Albumin (3.5-5.0) g/dL Amylase (30-110) U/L Lipase (23-300) U/L Urine Color (YELLOW) Urine Appearance (CLEAR) Urine pH (5-6) Ur Specific [place] (1.005-1.025) Urine Protein (Negative) Urine Ketones (NEGATIVE) Urine Blood (0-5) Eben/ul Urine Nitrite (NEGATIVE) Urine Bilirubin (NEGATIVE) Urine Urobilinogen (0-1) mg/dL Ur Leukocyte Esterase (NEGATIVE) Urine WBC (Auto) (0-5) /HPF Urine RBC (Auto) (0-2) /HPF U Epithel Cells (Auto) (FEW) /HPF Urine Bacteria (Auto) (NEGATIVE) /HPF Urine Culture Reflexed (NO) Urine Glucose (NEGATIVE) mg/dL Salicylates (2-20) mg/dL Urine Opiates Level NEGATIVE (NEGATIVE) Ur Methadone NEGATIVE (NEGATIVE) Acetaminophen (10-30) ug/ml Urine Barbiturates NEGATIVE (NEGATIVE) Ur Phencyclidine (PCP) NEGATIVE (NEGATIVE) Urine Amphetamine NEGATIVE (NEGATIVE) U Benzodiazepine Level NEGATIVE (NEGATIVE) Urine Cocaine NEGATIVE (NEGATIVE) Urine Marijuana (THC) POSITIVE (NEGATIVE) Ethyl Alcohol (0-10) mg/dL 12/06/19 12/06/19 12/06/19 Range/Units 05:45 05:45 08:45 WBC 5.1 (4.0-10.5) K/mm3 RBC 3.89 L (4.1-5.6) M/mm3 Hgb 13.5 (12.5-18.0) gm/dl Hct 39.7 L (42-50) % MCV 102.1 H (78-100) fl MCH 34.7 H (26-32) pg MCHC 34.0 (32-36) g/dl RDW 13.2 (11.5-14.0) % Plt Count 213 (150-450) K/mm3 MPV 8.8 (7.5-11.0) fl Gran % 38.1 (36.0-66.0) % Eos # (Auto) 0.08 (0-0.5) Absolute Lymphs (auto) 2.46 (1.0-4.6) Absolute Monos (auto) 0.59 (0.0-1.3) Lymphocytes % 48.0 H (24.0-44.0) % Monocytes % 11.5 (0.0-12.0) % Eosinophils % 1.6 (0.00-5.0) % Basophils % 0.8 (0.0-0.4) % Absolute Granulocytes 1.95 (1.4-6.9) Basophils # 0.04 (0-0.4) D-Dimer (215-500) ng/mL Sodium 140 (137-145) mmol/L Potassium 3.6 (3.5-5.1) mmol/L Chloride 109 H (98-107) mmol/L Carbon Dioxide 27 (22-30) mmol/L Anion Gap 7.8 (5-15) MEQ/L BUN 5 L (9-20) mg/dL Creatinine 0.77 (0.66-1.25) mg/dL Estimated GFR > 60.0 ML/MIN Glucose 98 (74-106) mg/dL Calcium 7.5 L (8.4-10.2) mg/dL Magnesium (1.6-2.3) mg/dL Total Bilirubin 0.40 (0.2-1.3) mg/dL AST 52 (17-59) U/L ALT 35 (0-50) U/L Alkaline Phosphatase 60 (38-126) U/L Troponin I < 0.012 (0.000-0.034) ng/mL NT-Pro-B Natriuret Pep (0-450) pg/mL Serum Total Protein 5.9 L (6.3-8.2) g/dL Albumin 3.7 (3.5-5.0) g/dL Amylase (30-110) U/L Lipase (23-300) U/L Urine Color (YELLOW) Urine Appearance (CLEAR) Urine pH (5-6) Ur Specific [place] (1.005-1.025) Urine Protein (Negative) Urine Ketones (NEGATIVE) Urine Blood (0-5) Eben/ul Urine Nitrite (NEGATIVE) Urine Bilirubin (NEGATIVE) Urine Urobilinogen (0-1) mg/dL Ur Leukocyte Esterase (NEGATIVE) Urine WBC (Auto) (0-5) /HPF Urine RBC (Auto) (0-2) /HPF U Epithel Cells (Auto) (FEW) /HPF Urine Bacteria (Auto) (NEGATIVE) /HPF Urine Culture Reflexed (NO) Urine Glucose (NEGATIVE) mg/dL Salicylates (2-20) mg/dL Urine Opiates Level (NEGATIVE) Ur Methadone (NEGATIVE) Acetaminophen (10-30) ug/ml Urine Barbiturates (NEGATIVE) Ur Phencyclidine (PCP) (NEGATIVE) Urine Amphetamine (NEGATIVE) U Benzodiazepine Level (NEGATIVE) Urine Cocaine (NEGATIVE) Urine Marijuana (THC) (NEGATIVE) Ethyl Alcohol 241 H (0-10) mg/dL 12/06/19 12/06/19 Range/Units 10:47 10:47 WBC 5.4 (4.0-10.5) K/mm3 RBC 3.95 L (4.1-5.6) M/mm3 Hgb 13.6 (12.5-18.0) gm/dl Hct 40.0 L (42-50) % MCV 101.3 H (78-100) fl MCH 34.4 H (26-32) pg MCHC 34.0 (32-36) g/dl RDW 12.9 (11.5-14.0) % Plt Count 226 (150-450) K/mm3 MPV 9.3 (7.5-11.0) fl Gran % 50.9 (36.0-66.0) % Eos # (Auto) 0.06 (0-0.5) Absolute Lymphs (auto) 2.02 (1.0-4.6) Absolute Monos (auto) 0.51 (0.0-1.3) Lymphocytes % 37.3 (24.0-44.0) % Monocytes % 9.4 (0.0-12.0) % Eosinophils % 1.1 (0.00-5.0) % Basophils % 1.3 (0.0-0.4) % Absolute Granulocytes 2.76 (1.4-6.9) Basophils # 0.07 (0-0.4) D-Dimer (215-500) ng/mL Sodium 138 (137-145) mmol/L Potassium 3.8 (3.5-5.1) mmol/L Chloride 107 (98-107) mmol/L Carbon Dioxide 25 (22-30) mmol/L Anion Gap 10.1 (5-15) MEQ/L BUN 5 L (9-20) mg/dL Creatinine 0.73 (0.66-1.25) mg/dL Estimated GFR > 60.0 ML/MIN Glucose 88 (74-106) mg/dL Calcium 7.7 L (8.4-10.2) mg/dL Magnesium (1.6-2.3) mg/dL Total Bilirubin 0.50 (0.2-1.3) mg/dL AST 57 (17-59) U/L ALT 36 (0-50) U/L Alkaline Phosphatase 63 (38-126) U/L Troponin I (0.000-0.034) ng/mL NT-Pro-B Natriuret Pep (0-450) pg/mL Serum Total Protein 6.1 L (6.3-8.2) g/dL Albumin 3.9 (3.5-5.0) g/dL Amylase 80 (30-110) U/L Lipase 40 (23-300) U/L Urine Color (YELLOW) Urine Appearance (CLEAR) Urine pH (5-6) Ur Specific [place] (1.005-1.025) Urine Protein (Negative) Urine Ketones (NEGATIVE) Urine Blood (0-5) Eben/ul Urine Nitrite (NEGATIVE) Urine Bilirubin (NEGATIVE) Urine Urobilinogen (0-1) mg/dL Ur Leukocyte Esterase (NEGATIVE) Urine WBC (Auto) (0-5) /HPF Urine RBC (Auto) (0-2) /HPF U Epithel Cells (Auto) (FEW) /HPF Urine Bacteria (Auto) (NEGATIVE) /HPF Urine Culture Reflexed (NO) Urine Glucose (NEGATIVE) mg/dL Salicylates (2-20) mg/dL Urine Opiates Level (NEGATIVE) Ur Methadone (NEGATIVE) Acetaminophen (10-30) ug/ml Urine Barbiturates (NEGATIVE) Ur Phencyclidine (PCP) (NEGATIVE) Urine Amphetamine (NEGATIVE) U Benzodiazepine Level (NEGATIVE) Urine Cocaine (NEGATIVE) Urine Marijuana (THC) (NEGATIVE) Ethyl Alcohol 142 H (0-10) mg/dL - Radiology Impressions Radiology Exams & Impressions: Radiology Procedures Category Date Time Status CHEST 1 VIEW (PORTABLE) Stat Exams 12/05/19 20:32 Completed Assessment/Plan (1) Alcohol intoxication Current Visit: Yes Status: Acute Assessment & Plan: improved and cooperative after overnight stay, dose of Ativan 1 mg this AM (2) Suicidal ideation Current Visit: Yes Status: Acute Assessment & Plan: patient is asking for help, recent breakup with [employer] girlfriend. Code(s): R45.851 - SUICIDAL IDEATIONS Hospital Summary - Vitals & Intake/Output Vital Signs: Vital Signs Temperature 97.9 F 12/06/19 04:00 Pulse Rate 93 H 12/06/19 12:00 Respiratory Rate 16 12/06/19 08:00 Blood Pressure 104/69 12/06/19 08:00 O2 Sat by Pulse Oximetry 98 12/06/19 08:00 Intake & Output: Intake & Output 12/04/19 12/05/19 12/06/19 12/07/19 11:59 11:59 11:59 11:59 Intake Total 519 Output Total 525 Balance -6 Weight 65.3 kg - Lab Result Diagrams: 12/06/19 10:47 12/06/19 10:47 Lab Results-Last 24 Hrs: Lab Results-Last 24 Hours 12/05/19 12/05/19 12/05/19 Range/Units 20:45 20:45 20:45 WBC 5.7 (4.0-10.5) K/mm3 RBC 4.50 (4.1-5.6) M/mm3 Hgb 15.5 (12.5-18.0) gm/dl Hct 45.2 (42-50) % MCV 100.4 H (78-100) fl MCH 34.4 H (26-32) pg MCHC 34.3 (32-36) g/dl RDW 13.3 (11.5-14.0) % Plt Count 288 (150-450) K/mm3 MPV 9.4 (7.5-11.0) fl Gran % 44.2 (36.0-66.0) % Eos # (Auto) 0.08 (0-0.5) Absolute Lymphs (auto) 2.40 (1.0-4.6) Absolute Monos (auto) 0.65 (0.0-1.3) Lymphocytes % 42.0 (24.0-44.0) % Monocytes % 11.4 (0.0-12.0) % Eosinophils % 1.4 (0.00-5.0) % Basophils % 1.0 (0.0-0.4) % Absolute Granulocytes 2.53 (1.4-6.9) Basophils # 0.06 (0-0.4) D-Dimer (215-500) ng/mL Sodium 145 (137-145) mmol/L Potassium 3.4 L (3.5-5.1) mmol/L Chloride 112 H (98-107) mmol/L Carbon Dioxide 23 (22-30) mmol/L Anion Gap 13.6 (5-15) MEQ/L BUN 6 L (9-20) mg/dL Creatinine 0.86 (0.66-1.25) mg/dL Estimated GFR > 60.0 ML/MIN Glucose 112 H (74-106) mg/dL Calcium 8.0 L (8.4-10.2) mg/dL Magnesium 2.2 (1.6-2.3) mg/dL Total Bilirubin 0.20 (0.2-1.3) mg/dL AST 59 (17-59) U/L ALT 37 (0-50) U/L Alkaline Phosphatase 85 (38-126) U/L Troponin I (0.000-0.034) ng/mL NT-Pro-B Natriuret Pep 23.2 (0-450) pg/mL Serum Total Protein 7.0 (6.3-8.2) g/dL Albumin 4.4 (3.5-5.0) g/dL Amylase (30-110) U/L Lipase (23-300) U/L Urine Color (YELLOW) Urine Appearance (CLEAR) Urine pH (5-6) Ur Specific [place] (1.005-1.025) Urine Protein (Negative) Urine Ketones (NEGATIVE) Urine Blood (0-5) Eben/ul Urine Nitrite (NEGATIVE) Urine Bilirubin (NEGATIVE) Urine Urobilinogen (0-1) mg/dL Ur Leukocyte Esterase (NEGATIVE) Urine WBC (Auto) (0-5) /HPF Urine RBC (Auto) (0-2) /HPF U Epithel Cells (Auto) (FEW) /HPF Urine Bacteria (Auto) (NEGATIVE) /HPF Urine Culture Reflexed (NO) Urine Glucose (NEGATIVE) mg/dL Salicylates < 1.0 L (2-20) mg/dL Urine Opiates Level (NEGATIVE) Ur Methadone (NEGATIVE) Acetaminophen < 10 L (10-30) ug/ml Urine Barbiturates (NEGATIVE) Ur Phencyclidine (PCP) (NEGATIVE) Urine Amphetamine (NEGATIVE) U Benzodiazepine Level (NEGATIVE) Urine Cocaine (NEGATIVE) Urine Marijuana (THC) (NEGATIVE) Ethyl Alcohol 438 H (0-10) mg/dL 12/05/19 12/05/19 12/05/19 Range/Units 20:45 20:45 21:26 WBC (4.0-10.5) K/mm3 RBC (4.1-5.6) M/mm3 Hgb (12.5-18.0) gm/dl Hct (42-50) % MCV (78-100) fl MCH (26-32) pg MCHC (32-36) g/dl RDW (11.5-14.0) % Plt Count (150-450) K/mm3 MPV (7.5-11.0) fl Gran % (36.0-66.0) % Eos # (Auto) (0-0.5) Absolute Lymphs (auto) (1.0-4.6) Absolute Monos (auto) (0.0-1.3) Lymphocytes % (24.0-44.0) % Monocytes % (0.0-12.0) % Eosinophils % (0.00-5.0) % Basophils % (0.0-0.4) % Absolute Granulocytes (1.4-6.9) Basophils # (0-0.4) D-Dimer 428 (215-500) ng/mL Sodium (137-145) mmol/L Potassium (3.5-5.1) mmol/L Chloride (98-107) mmol/L Carbon Dioxide (22-30) mmol/L Anion Gap (5-15) MEQ/L BUN (9-20) mg/dL Creatinine (0.66-1.25) mg/dL Estimated GFR ML/MIN Glucose (74-106) mg/dL Calcium (8.4-10.2) mg/dL Magnesium (1.6-2.3) mg/dL Total Bilirubin (0.2-1.3) mg/dL AST (17-59) U/L ALT (0-50) U/L Alkaline Phosphatase (38-126) U/L Troponin I < 0.012 (0.000-0.034) ng/mL NT-Pro-B Natriuret Pep (0-450) pg/mL Serum Total Protein (6.3-8.2) g/dL Albumin (3.5-5.0) g/dL Amylase (30-110) U/L Lipase (23-300) U/L Urine Color YELLOW (YELLOW) Urine Appearance CLEAR (CLEAR) Urine pH 5.0 (5-6) Ur Specific [place] 1.012 (1.005-1.025) Urine Protein NEGATIVE (Negative) Urine Ketones NEGATIVE (NEGATIVE) Urine Blood SMALL (0-5) Eben/ul Urine Nitrite NEGATIVE (NEGATIVE) Urine Bilirubin NEGATIVE (NEGATIVE) Urine Urobilinogen NEGATIVE (0-1) mg/dL Ur Leukocyte Esterase NEGATIVE (NEGATIVE) Urine WBC (Auto) NONE (0-5) /HPF Urine RBC (Auto) 0-2 (0-2) /HPF U Epithel Cells (Auto) NONE (FEW) /HPF Urine Bacteria (Auto) NONE (NEGATIVE) /HPF Urine Culture Reflexed NO (NO) Urine Glucose NEGATIVE (NEGATIVE) mg/dL Salicylates (2-20) mg/dL Urine Opiates Level (NEGATIVE) Ur Methadone (NEGATIVE) Acetaminophen (10-30) ug/ml Urine Barbiturates (NEGATIVE) Ur Phencyclidine (PCP) (NEGATIVE) Urine Amphetamine (NEGATIVE) U Benzodiazepine Level (NEGATIVE) Urine Cocaine (NEGATIVE) Urine Marijuana (THC) (NEGATIVE) Ethyl Alcohol (0-10) mg/dL 12/05/19 12/05/19 12/06/19 Range/Units 21:26 23:48 05:45 WBC (4.0-10.5) K/mm3 RBC (4.1-5.6) M/mm3 Hgb (12.5-18.0) gm/dl Hct (42-50) % MCV (78-100) fl MCH (26-32) pg MCHC (32-36) g/dl RDW (11.5-14.0) % Plt Count (150-450) K/mm3 MPV (7.5-11.0) fl Gran % (36.0-66.0) % Eos # (Auto) (0-0.5) Absolute Lymphs (auto) (1.0-4.6) Absolute Monos (auto) (0.0-1.3) Lymphocytes % (24.0-44.0) % Monocytes % (0.0-12.0) % Eosinophils % (0.00-5.0) % Basophils % (0.0-0.4) % Absolute Granulocytes (1.4-6.9) Basophils # (0-0.4) D-Dimer (215-500) ng/mL Sodium (137-145) mmol/L Potassium (3.5-5.1) mmol/L Chloride (98-107) mmol/L Carbon Dioxide (22-30) mmol/L Anion Gap (5-15) MEQ/L BUN (9-20) mg/dL Creatinine (0.66-1.25) mg/dL Estimated GFR ML/MIN Glucose (74-106) mg/dL Calcium (8.4-10.2) mg/dL Magnesium (1.6-2.3) mg/dL Total Bilirubin (0.2-1.3) mg/dL AST (17-59) U/L ALT (0-50) U/L Alkaline Phosphatase (38-126) U/L Troponin I < 0.012 < 0.012 (0.000-0.034) ng/mL NT-Pro-B Natriuret Pep (0-450) pg/mL Serum Total Protein (6.3-8.2) g/dL Albumin (3.5-5.0) g/dL Amylase (30-110) U/L Lipase (23-300) U/L Urine Color (YELLOW) Urine Appearance (CLEAR) Urine pH (5-6) Ur Specific [place] (1.005-1.025) Urine Protein (Negative) Urine Ketones (NEGATIVE) Urine Blood (0-5) Eben/ul Urine Nitrite (NEGATIVE) Urine Bilirubin (NEGATIVE) Urine Urobilinogen (0-1) mg/dL Ur Leukocyte Esterase (NEGATIVE) Urine WBC (Auto) (0-5) /HPF Urine RBC (Auto) (0-2) /HPF U Epithel Cells (Auto) (FEW) /HPF Urine Bacteria (Auto) (NEGATIVE) /HPF Urine Culture Reflexed (NO) Urine Glucose (NEGATIVE) mg/dL Salicylates (2-20) mg/dL Urine Opiates Level NEGATIVE (NEGATIVE) Ur Methadone NEGATIVE (NEGATIVE) Acetaminophen (10-30) ug/ml Urine Barbiturates NEGATIVE (NEGATIVE) Ur Phencyclidine (PCP) NEGATIVE (NEGATIVE) Urine Amphetamine NEGATIVE (NEGATIVE) U Benzodiazepine Level NEGATIVE (NEGATIVE) Urine Cocaine NEGATIVE (NEGATIVE) Urine Marijuana (THC) POSITIVE (NEGATIVE) Ethyl Alcohol (0-10) mg/dL 12/06/1920 12/06/19 Range/Units 05:45 05:45 08:45 WBC 5.1 (4.0-10.5) K/mm3 RBC 3.89 L (4.1-5.6) M/mm3 Hgb 13.5 (12.5-18.0) gm/dl Hct 39.7 L (42-50) % MCV 102.1 H (78-100) fl MCH 34.7 H (26-32) pg MCHC 34.0 (32-36) g/dl RDW 13.2 (11.5-14.0) % Plt Count 213 (150-450) K/mm3 MPV 8.8 (7.5-11.0) fl Gran % 38.1 (36.0-66.0) % Eos # (Auto) 0.08 (0-0.5) Absolute Lymphs (auto) 2.46 (1.0-4.6) Absolute Monos (auto) 0.59 (0.0-1.3) Lymphocytes % 48.0 H (24.0-44.0) % Monocytes % 11.5 (0.0-12.0) % Eosinophils % 1.6 (0.00-5.0) % Basophils % 0.8 (0.0-0.4) % Absolute Granulocytes 1.95 (1.4-6.9) Basophils # 0.04 (0-0.4) D-Dimer (215-500) ng/mL Sodium 140 (137-145) mmol/L Potassium 3.6 (3.5-5.1) mmol/L Chloride 109 H (98-107) mmol/L Carbon Dioxide 27 (22-30) mmol/L Anion Gap 7.8 (5-15) MEQ/L BUN 5 L (9-20) mg/dL Creatinine 0.77 (0.66-1.25) mg/dL Estimated GFR > 60.0 ML/MIN Glucose 98 (74-106) mg/dL Calcium 7.5 L (8.4-10.2) mg/dL Magnesium (1.6-2.3) mg/dL Total Bilirubin 0.40 (0.2-1.3) mg/dL AST 52 (17-59) U/L ALT 35 (0-50) U/L Alkaline Phosphatase 60 (38-126) U/L Troponin I < 0.012 (0.000-0.034) ng/mL NT-Pro-B Natriuret Pep (0-450) pg/mL Serum Total Protein 5.9 L (6.3-8.2) g/dL Albumin 3.7 (3.5-5.0) g/dL Amylase (30-110) U/L Lipase (23-300) U/L Urine Color (YELLOW) Urine Appearance (CLEAR) Urine pH (5-6) Ur Specific [place] (1.005-1.025) Urine Protein (Negative) Urine Ketones (NEGATIVE) Urine Blood (0-5) Eben/ul Urine Nitrite (NEGATIVE) Urine Bilirubin (NEGATIVE) Urine Urobilinogen (0-1) mg/dL Ur Leukocyte Esterase (NEGATIVE) Urine WBC (Auto) (0-5) /HPF Urine RBC (Auto) (0-2) /HPF U Epithel Cells (Auto) (FEW) /HPF Urine Bacteria (Auto) (NEGATIVE) /HPF Urine Culture Reflexed (NO) Urine Glucose (NEGATIVE) mg/dL Salicylates (2-20) mg/dL Urine Opiates Level (NEGATIVE) Ur Methadone (NEGATIVE) Acetaminophen (10-30) ug/ml Urine Barbiturates (NEGATIVE) Ur Phencyclidine (PCP) (NEGATIVE) Urine Amphetamine (NEGATIVE) U Benzodiazepine Level (NEGATIVE) Urine Cocaine (NEGATIVE) Urine Marijuana (THC) (NEGATIVE) Ethyl Alcohol 241 H (0-10) mg/dL 12/06/19 12/06/19 Range/Units 10:47 10:47 WBC 5.4 (4.0-10.5) K/mm3 RBC 3.95 L (4.1-5.6) M/mm3 Hgb 13.6 (12.5-18.0) gm/dl Hct 40.0 L (42-50) % MCV 101.3 H (78-100) fl MCH 34.4 H (26-32) pg MCHC 34.0 (32-36) g/dl RDW 12.9 (11.5-14.0) % Plt Count 226 (150-450) K/mm3 MPV 9.3 (7.5-11.0) fl Gran % 50.9 (36.0-66.0) % Eos # (Auto) 0.06 (0-0.5) Absolute Lymphs (auto) 2.02 (1.0-4.6) Absolute Monos (auto) 0.51 (0.0-1.3) Lymphocytes % 37.3 (24.0-44.0) % Monocytes % 9.4 (0.0-12.0) % Eosinophils % 1.1 (0.00-5.0) % Basophils % 1.3 (0.0-0.4) % Absolute Granulocytes 2.76 (1.4-6.9) Basophils # 0.07 (0-0.4) D-Dimer (215-500) ng/mL Sodium 138 (137-145) mmol/L Potassium 3.8 (3.5-5.1) mmol/L Chloride 107 (98-107) mmol/L Carbon Dioxide 25 (22-30) mmol/L Anion Gap 10.1 (5-15) MEQ/L BUN 5 L (9-20) mg/dL Creatinine 0.73 (0.66-1.25) mg/dL Estimated GFR > 60.0 ML/MIN Glucose 88 (74-106) mg/dL Calcium 7.7 L (8.4-10.2) mg/dL Magnesium (1.6-2.3) mg/dL Total Bilirubin 0.50 (0.2-1.3) mg/dL AST 57 (17-59) U/L ALT 36 (0-50) U/L Alkaline Phosphatase 63 (38-126) U/L Troponin I (0.000-0.034) ng/mL NT-Pro-B Natriuret Pep (0-450) pg/mL Serum Total Protein 6.1 L (6.3-8.2) g/dL Albumin 3.9 (3.5-5.0) g/dL Amylase 80 (30-110) U/L Lipase 40 (23-300) U/L Urine Color (YELLOW) Urine Appearance (CLEAR) Urine pH (5-6) Ur Specific [place] (1.005-1.025) Urine Protein (Negative) Urine Ketones (NEGATIVE) Urine Blood (0-5) Eben/ul Urine Nitrite (NEGATIVE) Urine Bilirubin (NEGATIVE) Urine Urobilinogen (0-1) mg/dL Ur Leukocyte Esterase (NEGATIVE) Urine WBC (Auto) (0-5) /HPF Urine RBC (Auto) (0-2) /HPF U Epithel Cells (Auto) (FEW) /HPF Urine Bacteria (Auto) (NEGATIVE) /HPF Urine Culture Reflexed (NO) Urine Glucose (NEGATIVE) mg/dL Salicylates (2-20) mg/dL Urine Opiates Level (NEGATIVE) Ur Methadone (NEGATIVE) Acetaminophen (10-30) ug/ml Urine Barbiturates (NEGATIVE) Ur Phencyclidine (PCP) (NEGATIVE) Urine Amphetamine (NEGATIVE) U Benzodiazepine Level (NEGATIVE) Urine Cocaine (NEGATIVE) Urine Marijuana (THC) (NEGATIVE) Ethyl Alcohol 142 H (0-10) mg/dL - Radiology Exams Ordered Rad Exams-Entire Visit: Radiology Procedures Category Date Time Status CHEST 1 VIEW (PORTABLE) Stat Exams 12/05/19 20:32 Completed - Procedures and Test Procedures and Tests throughout Hospitalization: Therapy Orders & Screens 12/05/19 23:42 Smoking Cessation Education ONCE Comment: Diagnosis: ALCOHOL INTOXICATION, SUICIDAL IDEATION Smoking Status: Current every day smoker How long have you smoked: 10 YEARS Have you smoked in the past 12 months: Yes Do you dip or chew tobacco: No - Discharge Disposition: DC TO [facility] Condition: Good Prescriptions: No Action No Reportable Medications [No Reported Medications] Follow up with: DOCTOR,NO FAMILY [Primary Care Provider] - 1 Week
== END 2019-12-06 12:50 | disposition short-term general hospital (02) ==
LOC: ED 20:22 → ICU 22:58
PROVIDERS: ADMIT Family Medicine; ATTEND Family Medicine
DX: F10.929 Alcohol use, unspecified with intoxication, unspecified (principal); R45.851 Suicidal ideations
CPT/HCPCS: 36415; 71045; 80053; 80307; 81001; 82150; 83690; 83735; 83880; 84484; 85025; 85379; 93005; 93041; 94760; 96360; 99285; G0378; J2060; A9270-GY; G0480

== ENCOUNTER 2020-02-02 17:57 | Inpatient (IN) | payer MEDICAID, OTHER ==
[2020-02-02 18:16] LABS: Absolute Neutrophil Ct (ANC) 3.24 (1.4-6.9); BASOPHIL % 0.7 % (0.0-0.4); Basophil (Absolute #) 0.05 (0-0.4); Eosinophil % 0.8 % (0.00-5.0); Eosinophil (Absolute #) 0.06 (0-0.5); Hematocrit 45.4 % (42-50); Hemoglobin 15.6 gm/dl (12.5-18.0); Lymphocyte (Absolute #) 3.31 (1.0-4.6); Lymphocytes % 46.2 % (24.0-44.0); Mean Corpuscular Hgb Concent. 34.4 g/dl (32-36); Mean Platelet Volume 9.4 fl (7.5-11.0); Monocyte (Absolute #) 0.51 (0.0-1.3); Monocytes % 7.1 % (0.0-12.0); Neutrophil % 45.2 % (36.0-66.0); Platelet Count 259 K/mm3 (150-450); Red Blood Count 4.73 M/mm3 (4.1-5.6); Red Cell Distribution Width 12.8 % (11.5-14.0); White Blood Count 7.2 K/mm3 (4.0-10.5)
--- NOTE | 2020-02-02 18:27 | ERPHSYRPT ---
- History of Present Illness Source: patient Patient Subjective Stated Complaint: "I've been thinking about shooting myself." Triage Nursing Assessment: Patient presented with his grandmother. Patient reported having thoughts of suicide stating,"I've been thinking of shooting myself." patient reported drinking roughly 1/5 of vodka per day. Reported history of suicidal ideations without attempts. Reported longstanding history of alcohol use and mixed anxiety/depression. Patient reported that he does have access of weapons and guns at his residence. Patient stated, "I can get them if I need them." Patient denied any illicit drug use. Patient reported having a bad conversation with his ex-fiance today that got him upset and that he started having these thoughts as well as drinking heavily shortly there after. Patient presented groomed yet unkempt. Affect flat/depressed without tears or pressured speech. Pupils 5mm bilateral. Speech soft/garbled with alcohol halitosis. [place] thought content. Oral mucosa pink/moist. Neck supple non-tender. Symmetrical chest expansion. Heart tones regular rate and rhythm with S1 and S2 without extra sounds. Lungs clear to auscultation bilateral with adequate airflow. Abdomen soft non-distended non-tender. Peripheral pulses +2 bilateral. Gait unsteady. Timing/Duration: today Severity of Symptoms-Max: moderate Severity of Symptoms-Current: moderate Context related to: work Suicidal thoughts: specific plan Associated Symptoms: depressed Previous symptoms: no prior history Hx Tetanus, Diphtheria Vaccination/Date Given: No Hx Influenza Vaccination/Date Given: No Hx Pneumococcal Vaccination/Date Given: No <MASSIMO FLORES - Last Filed: 02/02/20 18:23> <MASSIMO RACHEL - Last Filed: 02/02/20 22:28> - History of Present Illness Physician History: 34 yo intoxicated wm w suicidal ideation. Pt states that he wants to shoot himself. 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 (MASSIMO FLORES) Allergies/Adverse Reactions: No Known Drug Allergies Allergy (Unverified 02/02/20 18:00) Home Medications: No Reportable Medications [No Reported Medications] 12/05/19 [History] Travel Risk - International Travel Have you traveled outside of the country in past 3 weeks: No - Coronavirus Screening Are you exhibiting any of the following symptoms?: No Close contact with a COVID-19 positive Pt in past 14-21 Days: Yes <MASSIMO FLORES - Last Filed: 02/02/20 18:23> - Past Medical History Pertinent Past Medical History: Yes Neurological History: No Pertinent History ENT History: No Pertinent History Cardiac History: No Pertinent History Respiratory History: No Pertinent History Endocrine Medical History: No Pertinent History Musculoskeletal History: No Pertinent History GI Medical History: Hemorrhoids History: No Pertinent History Psycho-Social History: Anxiety, Attention Deficit Disorder Male Reproductive Disorders: No Pertinent History - Past Surgical History Past Surgical History: Yes Neuro Surgical History: No Pertinent History Cardiac: No Pertinent History Respiratory: No Pertinent History Gastrointestinal: Hemorrhoidectomy Genitourinary: No Pertinent History Musculoskeletal: No Pertinent History Male Surgical History: No Pertinent History - Social History Smoking Status: Current every day smoker How long have you smoked: 10 YEARS Exposure to second hand smoke: No Drug Use: marijuana, methamphetamines Patient Lives Alone: No Significant Family History: no pertinent family hx <MASSIMO FLORES - Last Filed: 02/02/20 18:23> - Review of Systems Constitutional: No Symptoms Eyes: No Symptoms Ears, Nose, & Throat: No Symptoms Respiratory: No Symptoms Cardiac: No Symptoms Abdominal/Gastrointestinal: No Symptoms Genitourinary Symptoms: No Symptoms Musculoskeletal: No Symptoms Skin: No Symptoms Neurological: No Symptoms Endocrine: No Symptoms Hematologic/Lymphatic: No Symptoms Immunological/Allergic: No Symptoms <MASSIMO FLORES - Last Filed: 02/02/20 18:23> - Physical Exam General Appearance: no apparent distress Eyes, Ears, Nose, Throat Exam: normal ENT inspection Neck Exam: normal inspection, non-tender, supple, full range of motion, No Brudzinski, No Kernig's, No meningismus Respiratory Exam: normal breath sounds, lungs clear, airway intact, No respiratory distress Cardiovascular Exam: tachycardia (Mild), No murmur Gastrointestinal/Abdominal Exam: soft, normal bowel sounds, No tenderness Extremities Exam: normal inspection Peripheral Pulses: carotid (R): 2+, carotid (L): 2+ Current Suicidality: has suicide plan Neurological Exam: 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, 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, oriented x 3, depressed affect Appearance: appropriate appearance, appropriate insight Behavior/Eye Contact/Speech: alert & cooperative, good eye contact Thoughts/Hallucinations: no apparent hallucination Skin Exam: normal color, warm, dry, No rash SpO2 Interpretation: normal SpO2: 98 O2 Delivery: Room Air <MASSMIO FLORES - Last Filed: 02/02/20 18:23> - Nursing Vital Signs Nursing Vital Signs: Initial Vital Signs Temperature 98.7 F 02/02/20 17:57 Pulse Rate 104 H 02/02/20 17:57 Respiratory Rate 16 02/02/20 17:57 Blood Pressure 131/99 02/02/20 17:57 O2 Sat by Pulse Oximetry 98 02/02/20 17:57 Pain Scale Pain Intensity 0 Ordered Tests: Active Orders 24 hr Category Date Time Status Code Status Order ROUTINE Care 02/02/20 22:24 Ordered IV Care Q6H Care 02/02/20 22:[address] in Observation ROUTINE Care 02/02/20 22:24 Ordered House Regular Diet Diet 02/02/20 Breakfast Ordered ACETAMINOPHEN Stat Lab 02/02/20 18:13 Completed BMP AM.LAB Lab 02/03/20 04:00 Ordered CBC W DIFF AM.LAB Lab 02/03/20 04:00 Ordered CBC W DIFF Stat Lab 02/02/20 18:13 Completed CMP Stat Lab 02/02/20 18:13 Completed ETHYL ALCOHOL Stat Lab 02/02/20 18:13 Completed SALICYLATE Stat Lab 02/02/20 18:13 Completed UA W/RFX UR CULTURE Stat Lab 02/02/20 18:23 Completed Urine Triage Profile Stat Lab 02/02/20 18:23 Completed Medication Summary Generic Name Dose Route Start Last Admin Trade Name Freq PRN Reason Stop Dose Admin Acetaminophen 650 mg 02/02/20 22:23 Tylenol 325 Mg PO 03/03/20 22:22 Q4H PRN PRN PAIN AND/OR FEVER Discontinued Medications Generic Name Dose Route Start Last Admin Trade Name Freq PRN Reason Stop Dose Admin Ondansetron HCl 8 mg 02/02/20 22:07 02/02/20 22:13 Zofran Odt 4 Mg PO 02/02/20 22:08 8 mg STAT ONE Administration Ondansetron HCl Confirm 02/02/20 22:12 Zofran Odt 4 Mg Administered 02/02/20 22:13 Dose 8 mg .ROUTE .Rounds-PredicSis ONE Lab/Rad Data: Laboratory Result Diagrams 02/02/20 18:13 02/02/20 18:13 Laboratory Results 02/02/20 02/02/20 02/02/20 Range/Units 18:23 18:23 18:13 WBC (4.0-10.5) K/mm3 RBC (4.1-5.6) M/mm3 Hgb (12.5-18.0) gm/dl Hct (42-50) % MCV (78-100) fl MCH (26-32) pg MCHC (32-36) g/dl RDW (11.5-14.0) % Plt Count (150-450) K/mm3 MPV (7.5-11.0) fl Gran % (36.0-66.0) % Eos # (Auto) (0-0.5) Absolute Lymphs (auto) (1.0-4.6) Absolute Monos (auto) (0.0-1.3) Lymphocytes % (24.0-44.0) % Monocytes % (0.0-12.0) % Eosinophils % (0.00-5.0) % Basophils % (0.0-0.4) % Absolute Granulocytes (1.4-6.9) Basophils # (0-0.4) Sodium 146 H (137-145) mmol/L Potassium 3.9 (3.5-5.1) mmol/L Chloride 108 H (98-107) mmol/L Carbon Dioxide 27 (22-30) mmol/L Anion Gap 15.0 (5-15) MEQ/L BUN 10 (9-20) mg/dL Creatinine 0.88 (0.66-1.25) mg/dL Estimated GFR > 60.0 ML/MIN Glucose 111 H (74-106) mg/dL Calcium 8.4 (8.4-10.2) mg/dL Total Bilirubin 0.30 (0.2-1.3) mg/dL AST 46 (17-59) U/L ALT 32 (0-50) U/L Alkaline Phosphatase 94 (38-126) U/L Serum Total Protein 7.4 (6.3-8.2) g/dL Albumin 4.5 (3.5-5.0) g/dL Urine Color YELLOW (YELLOW) Urine Appearance CLEAR (CLEAR) Urine pH 5.0 (5-6) Ur Specific [place] 1.018 (1.005-1.025) Urine Protein NEGATIVE (Negative) Urine Ketones NEGATIVE (NEGATIVE) Urine Blood SMALL (0-5) Eben/ul Urine Nitrite NEGATIVE (NEGATIVE) Urine Bilirubin NEGATIVE (NEGATIVE) Urine Urobilinogen 2 (0-1) mg/dL Ur Leukocyte Esterase NEGATIVE (NEGATIVE) Urine WBC (Auto) NONE (0-5) /HPF Urine RBC (Auto) NONE (0-2) /HPF U Epithel Cells (Auto) NONE (FEW) /HPF Urine Bacteria (Auto) NONE (NEGATIVE) /HPF Urine Mucus (Auto) SLIGHT (NEGATIVE) /HPF Urine Culture Reflexed NO (NO) Urine Glucose NEGATIVE (NEGATIVE) mg/dL Salicylates < 1.0 L (2-20) mg/dL Urine Opiates Level NEGATIVE (NEGATIVE) Ur Methadone NEGATIVE (NEGATIVE) Acetaminophen < 10 L (10-30) ug/ml Urine Barbiturates NEGATIVE (NEGATIVE) Ur Phencyclidine (PCP) NEGATIVE (NEGATIVE) Urine Amphetamine NEGATIVE (NEGATIVE) U Benzodiazepine Level NEGATIVE (NEGATIVE) Urine Cocaine NEGATIVE (NEGATIVE) Urine Marijuana (THC) NEGATIVE (NEGATIVE) Ethyl Alcohol 413 H (0-10) mg/dL 12/17/20 Range/Units 18:13 WBC 7.2 (4.0-10.5) K/mm3 RBC 4.73 (4.1-5.6) M/mm3 Hgb 15.6 (12.5-18.0) gm/dl Hct 45.4 (42-50) % MCV 96.0 (78-100) fl MCH 33.0 H (26-32) pg MCHC 34.4 (32-36) g/dl RDW 12.8 (11.5-14.0) % Plt Count 259 (150-450) K/mm3 MPV 9.4 (7.5-11.0) fl Gran % 45.2 (36.0-66.0) % Eos # (Auto) 0.06 (0-0.5) Absolute Lymphs (auto) 3.31 (1.0-4.6) Absolute Monos (auto) 0.51 (0.0-1.3) Lymphocytes % 46.2 H (24.0-44.0) % Monocytes % 7.1 (0.0-12.0) % Eosinophils % 0.8 (0.00-5.0) % Basophils % 0.7 (0.0-0.4) % Absolute Granulocytes 3.24 (1.4-6.9) Basophils # 0.05 (0-0.4) Sodium (137-145) mmol/L Potassium (3.5-5.1) mmol/L Chloride (98-107) mmol/L Carbon Dioxide (22-30) mmol/L Anion Gap (5-15) MEQ/L BUN (9-20) mg/dL Creatinine (0.66-1.25) mg/dL Estimated GFR ML/MIN Glucose (74-106) mg/dL Calcium (8.4-10.2) mg/dL Total Bilirubin (0.2-1.3) mg/dL AST (17-59) U/L ALT (0-50) U/L Alkaline Phosphatase (38-126) U/L Serum Total Protein (6.3-8.2) g/dL Albumin (3.5-5.0) g/dL Urine Color (YELLOW) Urine Appearance (CLEAR) Urine pH (5-6) Ur Specific [place] (1.005-1.025) Urine Protein (Negative) Urine Ketones (NEGATIVE) Urine Blood (0-5) Eben/ul Urine Nitrite (NEGATIVE) Urine Bilirubin (NEGATIVE) Urine Urobilinogen (0-1) mg/dL Ur Leukocyte Esterase (NEGATIVE) Urine WBC (Auto) (0-5) /HPF Urine RBC (Auto) (0-2) /HPF U Epithel Cells (Auto) (FEW) /HPF Urine Bacteria (Auto) (NEGATIVE) /HPF Urine Mucus (Auto) (NEGATIVE) /HPF Urine Culture Reflexed (NO) Urine Glucose (NEGATIVE) mg/dL Salicylates (2-20) mg/dL Urine Opiates Level (NEGATIVE) Ur Methadone (NEGATIVE) Acetaminophen (10-30) ug/ml Urine Barbiturates (NEGATIVE) Ur Phencyclidine (PCP) (NEGATIVE) Urine Amphetamine (NEGATIVE) U Benzodiazepine Level (NEGATIVE) Urine Cocaine (NEGATIVE) Urine Marijuana (THC) (NEGATIVE) Ethyl Alcohol (0-10) mg/dL - Progress Progress: improved <MASSIMO RACHEL - Last Filed: 02/02/20 22:28> - Progress Progress Note: 02/02/20 22:26 I received checkout from off going physician, Massimo Skaggs. Patient is suicidal with an alcohol of 417. States he has a plan to shoot himself. He does have access to weapons. Therefore, patient will need a psychiatric evaluation. Unfortunately we cannot get a psychiatric evaluation until his alcohol has decreased. Therefore, we will admit him medically to the floor for alcohol intoxication and psychiatric evaluation. I did discuss over the phone with on-call physician, Dr. Brooks. She stated that she would like the patient to have a sitter on the floor. I do feel this is reasonable given his suicidal ideation. Therefore, we discussed over the phone with equipment operator warehouse, Margarette. She stated they will either have a sitter come in or have security sit with the patient. (MASSIMO RACHEL) <MASSIMO FLORES - Last Filed: 02/02/20 18:23> - Departure Departure Disposition: Observation Critical Care Time: No <MASSIMO RACHEL - Last Filed: 02/02/20 22:28> - Departure Clinical Impression: Suicidal ideation Condition: Stable Referrals: DOCTOR,NO FAMILY [Primary Care Provider] -
[2020-02-02 18:36] LABS: ALBUMIN 4.5 g/dL (3.5-5.0); ALKALINE PHOSPHATASE 94 U/L (38-126); BLOOD UREA NITROGEN 10 mg/dL (9-20); CHLORIDE 108 mmol/L (98-107); Calcium 8.4 mg/dL (8.4-10.2); Carbon Dioxide 27 mmol/L (22-30); Creatinine 1 0.88 mg/dL (0.66-1.25); EST GLOMERULAR FILTRATION RATE > 60.0 ML/MIN; Glucose 111 mg/dL (74-106); Potassium 3.9 mmol/L (3.5-5.1); SGOT/AST 46 U/L (17-59); SGPT/ALT 32 U/L (0-50); SODIUM 146 mmol/L (137-145); Total Protein 7.4 g/dL (6.3-8.2)
[2020-02-02 18:56] LABS: ACETAMINOPHEN < 10 ug/ml (10-30); ETHYL ALCOHOL 413 mg/dL (0-10); SALICYLATE < 1.0 mg/dL (2-20)
[2020-02-02 19:02] LABS: Appearance CLEAR (CLEAR); Bilirubin NEGATIVE (NEGATIVE); Blood SMALL Ery/ul (0-5); Glucose NEGATIVE (NEGATIVE); Ketones NEGATIVE (NEGATIVE); Leukocyte Esterase NEGATIVE (NEGATIVE); Mucus SLIGHT /HPF (NEGATIVE); Nitrite NEGATIVE (NEGATIVE); Protein,Urine Dip NEGATIVE (Negative); Specific Gravity 1.018 (1.005-1.025); Urobilinogen 2 mg/dL (0-1)
[2020-02-02 19:16] LABS: Amphetamine,Urine NEGATIVE (NEGATIVE); Barbiturate,Urine NEGATIVE (NEGATIVE); Benzodiazepine,Urine NEGATIVE (NEGATIVE); Cocaine,Urine NEGATIVE (NEGATIVE); Methadone,Urine NEGATIVE (NEGATIVE); Opiate,Urine NEGATIVE (NEGATIVE); PCP,Urine NEGATIVE (NEGATIVE); THC,Urine NEGATIVE (NEGATIVE)
[2020-02-02] MEDS ORDERED: ZOFRAN ODT 4 MG PO ONE (22:07)
[2020-02-02] MEDS ORDERED: ZOFRAN ODT 4 MG ONE (22:12)
[2020-02-02] MEDS ORDERED: TYLENOL 325 MG PO PRN (22:23)
[2020-02-03 05:16] LABS: Absolute Neutrophil Ct (ANC) 3.09 (1.4-6.9); BASOPHIL % 0.7 % (0.0-0.4); Basophil (Absolute #) 0.05 (0-0.4); Eosinophil (Absolute #) 0.07 (0-0.5); Hemoglobin 14.5 gm/dl (12.5-18.0); Lymphocyte (Absolute #) 3.55 (1.0-4.6); Lymphocytes % 48.4 % (24.0-44.0); Mean Cell Volume 95.5 fl (78-100); Mean Corpuscular Hgb Concent. 34.5 g/dl (32-36); Mean Platelet Volume 9.6 fl (7.5-11.0); Monocyte (Absolute #) 0.57 (0.0-1.3); Monocytes % 7.8 % (0.0-12.0); Neutrophil % 42.1 % (36.0-66.0); Platelet Count 240 K/mm3 (150-450); Red Cell Distribution Width 12.5 % (11.5-14.0); White Blood Count 7.3 K/mm3 (4.0-10.5)
[2020-02-03 05:51] LABS: BLOOD UREA NITROGEN 8 mg/dL (9-20); CHLORIDE 101 mmol/L (98-107); Calcium 8.5 mg/dL (8.4-10.2); Carbon Dioxide 25 mmol/L (22-30); Creatinine 1 0.76 mg/dL (0.66-1.25); EST GLOMERULAR FILTRATION RATE > 60.0 ML/MIN; Glucose 102 mg/dL (74-106); Potassium 3.4 mmol/L (3.5-5.1); SODIUM 137 mmol/L (137-145)
[2020-02-03] MEDS ORDERED: Vitamins For Infusion 10 ML INJECTION*** 10 ML, THIAMINE 200 MG/2 ML*** 100 MG, FOLNATE... IV SCH ×4 (10:30)
[2020-02-03] MEDS: Nicoderm CQ 21 MG TOP SCH (10:47)
[2020-02-03] MEDS: Ativan 2 MG/1 ML VIAL IV PRN ×4 (10:49→21:21)
[2020-02-03] MEDS: Zofran 4 MG/2 ML VIAL IV PRN ×2 (10:49→17:43)
[2020-02-03 13:15] LABS: INR 1.03 (0.8-3.0); PROTIME 11.6 SECONDS (8.83-12.87)
[2020-02-03] MEDS: PROTONIX 40 MG IV IV SCH (13:35)
--- NOTE | 2020-02-03 14:43 | PCM.HP ---
History of Present Illness - Chief Complaint Chief Complaint: ETOH TOXCITY Date: 02/03/20 History of Present Illness: is a 34 year old male seen and examined this am following ER admission for etoh abuse and suicide ideation. Patient reports he has a hx of alcohol abuse. He drinks daily. He has tried to stop drinking but has been unable to stay sober. Patient reports he has been hospitalized at least 2x this year for alcohol abuse and at least 1-2 times a year for the past couple of years. Patient reports he asked his grandmother to bring him to hospital last night. He states he doesnt want to kill himself but will make statements about wanting to so he can get help. Patient reports but has some anxiety and depression. Patient reports that he does not have a specific plan to harm to himself. Patient denies any routine medical problems. He does report hx of hemorrhoids - Review of Systems Constitutional: No Fever, No Chills, No Fatigue, No Weakness Eyes: Other (blurry vision at times) Ears, Nose, & Throat: No Symptoms Respiratory: No Cough, No Short Of Breath Cardiac: No Chest Pain, No Edema Abdominal/Gastrointestinal: Nausea, Melena, Appetite Changes, No Vomiting, No Diarrhea, No Constipation Genitourinary Symptoms: No Dysuria, No Frequency, No Hematuria Musculoskeletal: No Back Pain, No Joint Swelling Skin: No Symptoms Neurological: Tremors, No Dizziness, No Headache Psychological: Alcohol Abuse, Anxiety, Depression, Suicidal Ideations, No Homicidal Ideations Hematologic/Lymphatic: No Anemia, No Easy Bleeding, No Gum Bleeding Medications & Allergies Home Medications: Home Medication List No Reportable Medications [No Reported Medications] 12/05/19 [History Confirmed 02/02/20] Allergies/Adverse Reactions: Allergies Allergy/AdvReac Type Severity Reaction Status Date / Time No Known Drug Allergies Allergy Unverified 02/02/20 18:00 - Past Medical History Past Medical History: Yes Neurological History: No Pertinent History ENT History: No Pertinent History Cardiac History: No Pertinent History Respiratory History: No Pertinent History Endocrine Medical History: No Pertinent History Musculoskelatal History: No Pertinent History GI Medical History: Hemorrhoids History: No Pertinent History Pyscho-Social History: Anxiety, Attention Deficit Disorder Male Reproductive Disorders: No Pertinent History - Past Surgical History Past Surgical History: Yes Neuro Surgical History: No Pertinent History Cardiac History: No Pertinent History Respiratory Surgery: No Pertinent History GI Surgical History: Hemorrhoidectomy Genitourinary Surgical Hx: No Pertinent History Musculskeletal Surgical Hx: No Pertinent History Male Surgical History: No Pertinent History - Social History Smoking Status: Current every day smoker How long have you smoked: 15 yrs Exposure to second hand smoke: Yes Alcohol: Heavy, Daily Drug Use: marijuana, methamphetamines Significant Family History: no pertinent family hx - Physical Exam Vital Signs: Vital Signs - 24 hr Temp Pulse Resp BP Pulse Ox 02/03/20 12:00 99.8 F 91 H 17 135/88 98 02/03/20 07:35 98.4 F 82 15 129/87 98 02/03/20 03:52 98.7 F 86 18 119/88 95 02/03/20 01:32 98.9 F 92 H 18 134/97 95 02/03/20 00:13 98 H 16 113/87 97 02/02/20 22:45 76 127/87 99 02/02/20 21:16 86 122/78 99 02/02/20 20:46 90 125/89 99 02/02/20 19:00 100 H 16 128/88 98 02/02/20 18:57 105 H 16 123/99 96 02/02/20 18:27 98 02/02/20 17:57 98.7 F 104 H 16 131/99 98 General Appearance: moderate distress, anxiety, thin Neurologic Exam: alert, oriented x 3, cooperative, depressed mood/affect, other (Patient is tremulous. Flapping hand tremor. Patient had difficutly with finger nose as well.), No normal mood/affect, No intoxicated appearance Eye Exam: No scleral icterus Ears, Nose, Throat Exam: moist mucous membranes Neck Exam: normal inspection, No carotid bruit, No JVD Respiratory Exam: normal breath sounds, lungs clear, No chest tenderness, No respiratory distress, No diminished breath sounds, No wheezing Cardiovascular Exam: regular rate/rhythm (at times patient is tachycardic), normal heart sounds, No murmur, No friction rub, No gallop Gastrointestinal/Abdomen Exam: soft, normal bowel sounds, tenderness, distention, No mass, No guarding Rectal Exam: not done Back Exam: normal inspection Extremity Exam: No contusions, No joint swelling, No pedal edema, No swelling, No tenderness Skin Exam: normal color, warm, dry, No rash, No ecchymosis Results - Labs Lab/Micro Results: Lab Results-Last 24 Hours 02/02/20 02/02/20 02/02/20 Range/Units 18:13 18:13 18:23 WBC 7.2 (4.0-10.5) K/mm3 RBC 4.73 (4.1-5.6) M/mm3 Hgb 15.6 (12.5-18.0) gm/dl Hct 45.4 (42-50) % MCV 96.0 (78-100) fl MCH 33.0 H (26-32) pg MCHC 34.4 (32-36) g/dl RDW 12.8 (11.5-14.0) % Plt Count 259 (150-450) K/mm3 MPV 9.4 (7.5-11.0) fl Gran % 45.2 (36.0-66.0) % Eos # (Auto) 0.06 (0-0.5) Absolute Lymphs (auto) 3.31 (1.0-4.6) Absolute Monos (auto) 0.51 (0.0-1.3) Lymphocytes % 46.2 H (24.0-44.0) % Monocytes % 7.1 (0.0-12.0) % Eosinophils % 0.8 (0.00-5.0) % Basophils % 0.7 (0.0-0.4) % Absolute Granulocytes 3.24 (1.4-6.9) Basophils # 0.05 (0-0.4) PT (8.83-12.87) SECONDS INR (0.8-3.0) Sodium 146 H (137-145) mmol/L Potassium 3.9 (3.5-5.1) mmol/L Chloride 108 H (98-107) mmol/L Carbon Dioxide 27 (22-30) mmol/L Anion Gap 15.0 (5-15) MEQ/L BUN 10 (9-20) mg/dL Creatinine 0.88 (0.66-1.25) mg/dL Estimated GFR > 60.0 ML/MIN Glucose 111 H (74-106) mg/dL Calcium 8.4 (8.4-10.2) mg/dL Total Bilirubin 0.30 (0.2-1.3) mg/dL AST 46 (17-59) U/L ALT 32 (0-50) U/L Alkaline Phosphatase 94 (38-126) U/L Serum Total Protein 7.4 (6.3-8.2) g/dL Albumin 4.5 (3.5-5.0) g/dL Urine Color YELLOW (YELLOW) Urine Appearance CLEAR (CLEAR) Urine pH 5.0 (5-6) Ur Specific [place] 1.018 (1.005-1.025) Urine Protein NEGATIVE (Negative) Urine Ketones NEGATIVE (NEGATIVE) Urine Blood SMALL (0-5) Eben/ul Urine Nitrite NEGATIVE (NEGATIVE) Urine Bilirubin NEGATIVE (NEGATIVE) Urine Urobilinogen 2 (0-1) mg/dL Ur Leukocyte Esterase NEGATIVE (NEGATIVE) Urine WBC (Auto) NONE (0-5) /HPF Urine RBC (Auto) NONE (0-2) /HPF U Epithel Cells (Auto) NONE (FEW) /HPF Urine Bacteria (Auto) NONE (NEGATIVE) /HPF Urine Mucus (Auto) SLIGHT (NEGATIVE) /HPF Urine Culture Reflexed NO (NO) Urine Glucose NEGATIVE (NEGATIVE) mg/dL Salicylates < 1.0 L (2-20) mg/dL Urine Opiates Level (NEGATIVE) Ur Methadone (NEGATIVE) Acetaminophen < 10 L (10-30) ug/ml Urine Barbiturates (NEGATIVE) Ur Phencyclidine (PCP) (NEGATIVE) Urine Amphetamine (NEGATIVE) U Benzodiazepine Level (NEGATIVE) Urine Cocaine (NEGATIVE) Urine Marijuana (THC) (NEGATIVE) Ethyl Alcohol 413 H (0-10) mg/dL 02/02/20 02/03/20 02/03/20 Range/Units 18:23 04:48 04:48 WBC 7.3 (4.0-10.5) K/mm3 RBC 4.40 (4.1-5.6) M/mm3 Hgb 14.5 (12.5-18.0) gm/dl Hct 42.0 (42-50) % MCV 95.5 (78-100) fl MCH 33.0 H (26-32) pg MCHC 34.5 (32-36) g/dl RDW 12.5 (11.5-14.0) % Plt Count 240 (150-450) K/mm3 MPV 9.6 (7.5-11.0) fl Gran % 42.1 (36.0-66.0) % Eos # (Auto) 0.07 (0-0.5) Absolute Lymphs (auto) 3.55 (1.0-4.6) Absolute Monos (auto) 0.57 (0.0-1.3) Lymphocytes % 48.4 H (24.0-44.0) % Monocytes % 7.8 (0.0-12.0) % Eosinophils % 1.0 (0.00-5.0) % Basophils % 0.7 (0.0-0.4) % Absolute Granulocytes 3.09 (1.4-6.9) Basophils # 0.05 (0-0.4) PT (8.83-12.87) SECONDS INR (0.8-3.0) Sodium 137 D (137-145) mmol/L Potassium 3.4 L (3.5-5.1) mmol/L Chloride 101 (98-107) mmol/L Carbon Dioxide 25 (22-30) mmol/L Anion Gap 14.0 (5-15) MEQ/L BUN 8 L (9-20) mg/dL Creatinine 0.76 (0.66-1.25) mg/dL Estimated GFR > 60.0 ML/MIN Glucose 102 (74-106) mg/dL Calcium 8.5 (8.4-10.2) mg/dL Total Bilirubin (0.2-1.3) mg/dL AST (17-59) U/L ALT (0-50) U/L Alkaline Phosphatase (38-126) U/L Serum Total Protein (6.3-8.2) g/dL Albumin (3.5-5.0) g/dL Urine Color (YELLOW) Urine Appearance (CLEAR) Urine pH (5-6) Ur Specific [place] (1.005-1.025) Urine Protein (Negative) Urine Ketones (NEGATIVE) Urine Blood (0-5) Eben/ul Urine Nitrite (NEGATIVE) Urine Bilirubin (NEGATIVE) Urine Urobilinogen (0-1) mg/dL Ur Leukocyte Esterase (NEGATIVE) Urine WBC (Auto) (0-5) /HPF Urine RBC (Auto) (0-2) /HPF U Epithel Cells (Auto) (FEW) /HPF Urine Bacteria (Auto) (NEGATIVE) /HPF Urine Mucus (Auto) (NEGATIVE) /HPF Urine Culture Reflexed (NO) Urine Glucose (NEGATIVE) mg/dL Salicylates (2-20) mg/dL Urine Opiates Level NEGATIVE (NEGATIVE) Ur Methadone NEGATIVE (NEGATIVE) Acetaminophen (10-30) ug/ml Urine Barbiturates NEGATIVE (NEGATIVE) Ur Phencyclidine (PCP) NEGATIVE (NEGATIVE) Urine Amphetamine NEGATIVE (NEGATIVE) U Benzodiazepine Level NEGATIVE (NEGATIVE) Urine Cocaine NEGATIVE (NEGATIVE) Urine Marijuana (THC) NEGATIVE (NEGATIVE) Ethyl Alcohol (0-10) mg/dL 02/03/20 02/03/20 02/03/20 Range/Units 07:51 12:42 12:42 WBC (4.0-10.5) K/mm3 RBC (4.1-5.6) M/mm3 Hgb (12.5-18.0) gm/dl Hct (42-50) % MCV (78-100) fl MCH (26-32) pg MCHC (32-36) g/dl RDW (11.5-14.0) % Plt Count (150-450) K/mm3 MPV (7.5-11.0) fl Gran % (36.0-66.0) % Eos # (Auto) (0-0.5) Absolute Lymphs (auto) (1.0-4.6) Absolute Monos (auto) (0.0-1.3) Lymphocytes % (24.0-44.0) % Monocytes % (0.0-12.0) % Eosinophils % (0.00-5.0) % Basophils % (0.0-0.4) % Absolute Granulocytes (1.4-6.9) Basophils # (0-0.4) PT 11.6 (8.83-12.87) SECONDS INR 1.03 (0.8-3.0) Sodium (137-145) mmol/L Potassium (3.5-5.1) mmol/L Chloride (98-107) mmol/L Carbon Dioxide (22-30) mmol/L Anion Gap (5-15) MEQ/L BUN (9-20) mg/dL Creatinine (0.66-1.25) mg/dL Estimated GFR ML/MIN Glucose (74-106) mg/dL Calcium (8.4-10.2) mg/dL Total Bilirubin (0.2-1.3) mg/dL AST (17-59) U/L ALT (0-50) U/L Alkaline Phosphatase (38-126) U/L Serum Total Protein (6.3-8.2) g/dL Albumin (3.5-5.0) g/dL Urine Color (YELLOW) Urine Appearance (CLEAR) Urine pH (5-6) Ur Specific [place] (1.005-1.025) Urine Protein (Negative) Urine Ketones (NEGATIVE) Urine Blood (0-5) Eben/ul Urine Nitrite (NEGATIVE) Urine Bilirubin (NEGATIVE) Urine Urobilinogen (0-1) mg/dL Ur Leukocyte Esterase (NEGATIVE) Urine WBC (Auto) (0-5) /HPF Urine RBC (Auto) (0-2) /HPF U Epithel Cells (Auto) (FEW) /HPF Urine Bacteria (Auto) (NEGATIVE) /HPF Urine Mucus (Auto) (NEGATIVE) /HPF Urine Culture Reflexed (NO) Urine Glucose (NEGATIVE) mg/dL Salicylates (2-20) mg/dL Urine Opiates Level (NEGATIVE) Ur Methadone (NEGATIVE) Acetaminophen (10-30) ug/ml Urine Barbiturates (NEGATIVE) Ur Phencyclidine (PCP) (NEGATIVE) Urine Amphetamine (NEGATIVE) U Benzodiazepine Level (NEGATIVE) Urine Cocaine (NEGATIVE) Urine Marijuana (THC) (NEGATIVE) Ethyl Alcohol 150 H 36 H (0-10) mg/dL Assessment/Plan (1) Alcohol abuse Current Visit: Yes Status: Acute Code(s): F10.10 - ALCOHOL ABUSE, UNCOMPLICATED (2) Suicidal ideation Current Visit: Yes Status: Acute Assessment & Plan: Patient will be one to one obs until cleared by tele psych Code(s): R45.851 - SUICIDAL IDEATIONS (3) Alcohol intoxication Current Visit: No Status: Acute (4) Anxiety and depression Current Visit: Yes Status: Acute Code(s): F41.9 - ANXIETY DISORDER, UNSPECIFIED; F32.9 - MAJOR DEPRESSIVE DISORDER, SINGLE EPISODE, UNSPECIFIED (5) Melena Current Visit: Yes Status: Acute Code(s): K92.1 - MELENA
[2020-02-03] MEDS: Carafate 1 GM PO SCH ×2 (16:45→21:21)
[2020-02-03] MEDS ORDERED: Sodium Chloride 0.9% 1000 ML 1,000 ML ONE (19:52)
[2020-02-03] MEDS: Sodium Chloride 0.9% 1000 ML 1,000 ML IV SCH (19:53)
[2020-02-04] MEDS: Sodium Chloride 0.9% 1000 ML 1,000 ML IV SCH (05:48)
[2020-02-04] MEDS: Ativan 2 MG/1 ML VIAL IV PRN ×5 (05:48→21:31)
[2020-02-04] MEDS: Carafate 1 GM PO SCH ×4 (06:31→21:32)
[2020-02-04 07:08] LABS: Hematocrit 42.4 % (42-50); Hemoglobin 14.4 gm/dl (12.5-18.0); Mean Cell Volume 96.4 fl (78-100); Mean Corpuscular Hemoglobin 32.7 pg (26-32); Mean Platelet Volume 10.6 fl (7.5-11.0); Platelet Count 201 K/mm3 (150-450); Red Cell Distribution Width 12.5 % (11.5-14.0); White Blood Count 5.7 K/mm3 (4.0-10.5)
[2020-02-04 07:34] LABS: ANION GAP 8.2 MEQ/L (5-15); BLOOD UREA NITROGEN 12 mg/dL (9-20); CHLORIDE 106 mmol/L (98-107); Calcium 8.5 mg/dL (8.4-10.2); Carbon Dioxide 27 mmol/L (22-30); EST GLOMERULAR FILTRATION RATE > 60.0 ML/MIN; Glucose 92 mg/dL (74-106); Potassium 3.5 mmol/L (3.5-5.1); SODIUM 137 mmol/L (137-145)
[2020-02-04] MEDS: Nicoderm CQ 21 MG TOP SCH (09:40)
[2020-02-04] MEDS: Zofran 4 MG/2 ML VIAL IV PRN ×2 (09:48→15:19)
[2020-02-04] MEDS: PROTONIX 40 MG IV IV SCH (09:48)
--- NOTE | 2020-02-04 10:34 | PCM.NOTE ---
Date and Time: 02/04/20 1032 Subjective Assessment: patient reports improvement today, still having some tremor and anxiety but meds are helpful. no vomiting, tolerating some po intake Objective Exam General Appearance: no apparent distress Neurologic Exam: alert, oriented x 3, cooperative, other (tremor present) Skin Exam: normal color, warm, dry Respiratory Exam: normal breath sounds, lungs clear, No respiratory distress Cardiovascular Exam: regular rate/rhythm, normal heart sounds Gastrointestinal/Abdomen Exam: soft, No tenderness, No mass OBJECTIVE DATA Vital Signs: Vital Signs - 24 hr Temp Pulse Resp BP Pulse Ox 02/04/20 08:00 97.8 F 85 20 129/95 95 02/04/20 04:00 81 02/04/20 03:42 97.7 F 81 17 132/99 98 02/04/20 00:01 77 02/04/20 00:00 97.6 F 73 16 119/91 97 02/03/20 20:00 98.0 F 77 18 122/92 99 02/03/20 16:00 99.4 F 80 18 132/98 97 02/03/20 12:00 99.8 F 91 H 17 135/88 98 Pain Assessment - Last Documented Pain Intensity 0 Pain Scale Used 0-10 Pain Scale Intake and Output: Intake & Output 02/01/20 02/02/20 02/03/20 02/04/20 11:59 11:59 11:59 11:59 Intake Total 360 2416 Output Total 250 Balance 360 2166 Weight 64.9 kg 65.7 kg Lab Results: Lab Results-Last 24 Hours 02/03/20 02/03/20 02/04/20 Range/Units 12:42 12:42 05:23 WBC 5.7 (4.0-10.5) K/mm3 RBC 4.40 (4.1-5.6) M/mm3 Hgb 14.4 (12.5-18.0) gm/dl Hct 42.4 (42-50) % MCV 96.4 (78-100) fl MCH 32.7 H (26-32) pg MCHC 34.0 (32-36) g/dl RDW 12.5 (11.5-14.0) % Plt Count 201 (150-450) K/mm3 MPV 10.6 (7.5-11.0) fl PT 11.6 (8.83-12.87) SECONDS INR 1.03 (0.8-3.0) Sodium (137-145) mmol/L Potassium (3.5-5.1) mmol/L Chloride (98-107) mmol/L Carbon Dioxide (22-30) mmol/L Anion Gap (5-15) MEQ/L BUN (9-20) mg/dL Creatinine (0.66-1.25) mg/dL Estimated GFR ML/MIN Glucose (74-106) mg/dL Calcium (8.4-10.2) mg/dL Ethyl Alcohol 36 H (0-10) mg/dL 02/04/20 Range/Units 05:23 WBC (4.0-10.5) K/mm3 RBC (4.1-5.6) M/mm3 Hgb (12.5-18.0) gm/dl Hct (42-50) % MCV (78-100) fl MCH (26-32) pg MCHC (32-36) g/dl RDW (11.5-14.0) % Plt Count (150-450) K/mm3 MPV (7.5-11.0) fl PT (8.83-12.87) SECONDS INR (0.8-3.0) Sodium 137 (137-145) mmol/L Potassium 3.5 (3.5-5.1) mmol/L Chloride 106 (98-107) mmol/L Carbon Dioxide 27 (22-30) mmol/L Anion Gap 8.2 (5-15) MEQ/L BUN 12 (9-20) mg/dL Creatinine 0.80 (0.66-1.25) mg/dL Estimated GFR > 60.0 ML/MIN Glucose 92 (74-106) mg/dL Calcium 8.5 (8.4-10.2) mg/dL Ethyl Alcohol (0-10) mg/dL Multi-Disciplinary Progress Notes: Multi-Disciplinary Progress Notes 02/03/20 15:41 Case Management Note by Nubia Hampton PATIENT GIVEN LIST OF AA MTGS IN HIS AREA OF RESIDENCE, PLACED IN DC FOLDER FOR TIME OF DC Initialized on 02/03/20 15:41 - END OF NOTE Assessment/Plan (1) Alcohol abuse Current Visit: Yes Status: Acute Assessment & Plan: detox, discussed since last drink was less than 48 hours ago he will likely continue to require treatment for detox for the next couple of days. Code(s): F10.10 - ALCOHOL ABUSE, UNCOMPLICATED (2) Suicidal ideation Current Visit: Yes Status: Acute Code(s): R45.851 - SUICIDAL IDEATIONS (3) Alcohol intoxication Current Visit: No Status: Acute
[2020-02-04] MEDS: VITAMIN B-1 100 MG PO SCH (12:40)
[2020-02-04] MEDS: Sodium Chloride 0.9% W/ 20 mEq KCl/LITER 1,000 ML IV SCH ×2 (12:42→21:32)
[2020-02-05] MEDS: Ativan 2 MG/1 ML VIAL IV PRN ×4 (00:27→14:06)
[2020-02-05] MEDS: Nicoderm CQ 21 MG TOP SCH (00:41)
[2020-02-05] MEDS: Zofran 4 MG/2 ML VIAL IV PRN (04:06)
--- NOTE | 2020-02-05 07:05 | PCM.NOTE ---
Date and Time: 02/05/20702 Subjective Assessment: patient tolerating po intake, no suicidal or homicidal ideations. no hallucinations, feels like he is improving but still feels anxious and shakey at times and still slightly unstable on his feet. Objective Exam General Appearance: no apparent distress, alert Neurologic Exam: alert, oriented x 3, cooperative, normal mood/affect, nml cerebellar function, sensation nml, No motor deficits Skin Exam: normal color, warm, dry Respiratory Exam: normal breath sounds, lungs clear, No respiratory distress Cardiovascular Exam: regular rate/rhythm, normal heart sounds Gastrointestinal/Abdomen Exam: soft, No tenderness, No mass Extremity Exam: normal inspection, normal range of motion OBJECTIVE DATA Vital Signs: Vital Signs - 24 hr Temp Pulse Resp BP Pulse Ox 02/05/20 04:00 98.4 F 81 16 112/73 98 02/05/20 00:00 98.0 F 86 16 136/94 98 02/04/20 20:00 97.8 F 88 16 117/77 97 02/04/20 16:00 99.6 F 91 H 18 142/94 96 02/04/20 11:49 99.4 F 81 18 131/92 97 02/04/20 08:00 97.8 F 85 20 129/95 95 Pain Assessment - Last Documented Pain Intensity 0 Pain Scale Used 0-10 Pain Scale Intake and Output: Intake & Output 02/02/20 02/03/20 02/04/20 02/05/20 11:59 11:59 11:59 11:59 Intake Total 360 2416 2707 Output Total 250 1400 Balance 360 2166 1307 Weight 64.9 kg 65.7 kg Lab Results: Lab Results-Last 24 Hours 02/04/20 02/04/20 02/04/20 Range/Units 05:23 05:23 14:00 WBC 5.7 (4.0-10.5) K/mm3 RBC 4.40 (4.1-5.6) M/mm3 Hgb 14.4 (12.5-18.0) gm/dl Hct 42.4 (42-50) % MCV 96.4 (78-100) fl MCH 32.7 H (26-32) pg MCHC 34.0 (32-36) g/dl RDW 12.5 (11.5-14.0) % Plt Count 201 (150-450) K/mm3 MPV 10.6 (7.5-11.0) fl Sodium 137 (137-145) mmol/L Potassium 3.5 (3.5-5.1) mmol/L Chloride 106 (98-107) mmol/L Carbon Dioxide 27 (22-30) mmol/L Anion Gap 8.2 (5-15) MEQ/L BUN 12 (9-20) mg/dL Creatinine 0.80 (0.66-1.25) mg/dL Estimated GFR > 60.0 ML/MIN Glucose 92 (74-106) mg/dL Calcium 8.5 (8.4-10.2) mg/dL Stool Occult Blood NEGATIVE (NEGATIVE) Assessment/Plan (1) Alcohol withdrawal Current Visit: Yes Status: Acute Assessment & Plan: continue ativan protocol Code(s): F10.239 - ALCOHOL DEPENDENCE WITH WITHDRAWAL, UNSPECIFIED (2) Alcohol abuse Current Visit: Yes Status: Acute Assessment & Plan: continue detox protocol, clinically improving but still requiring ativan for symtpoms of withdrawal. planning for outpatient treatment with [facility] following discharge Code(s): F10.10 - ALCOHOL ABUSE, UNCOMPLICATED (3) Suicidal ideation Current Visit: Yes Status: Acute Code(s): R45.851 - SUICIDAL IDEATIONS
[2020-02-05 07:06] LABS: Basophil (Absolute #) 0.05 (0-0.4); Eosinophil % 2.8 % (0.00-5.0); Eosinophil (Absolute #) 0.14 (0-0.5); Hematocrit 39.1 % (42-50); Hemoglobin 13.3 gm/dl (12.5-18.0); Lymphocyte (Absolute #) 1.57 (1.0-4.6); Lymphocytes % 31.8 % (24.0-44.0); Mean Platelet Volume 10.4 fl (7.5-11.0); Monocyte (Absolute #) 0.58 (0.0-1.3); Monocytes % 11.7 % (0.0-12.0); Neutrophil % 52.7 % (36.0-66.0); Platelet Count 186 K/mm3 (150-450); Red Blood Count 4.03 M/mm3 (4.1-5.6); Red Cell Distribution Width 12.3 % (11.5-14.0); White Blood Count 4.9 K/mm3 (4.0-10.5)
[2020-02-05 07:15] LABS: ALBUMIN 3.6 g/dL (3.5-5.0); ALKALINE PHOSPHATASE 68 U/L (38-126); ANION GAP 6.5 MEQ/L (5-15); BLOOD UREA NITROGEN 11 mg/dL (9-20); CHLORIDE 107 mmol/L (98-107); Calcium 8.3 mg/dL (8.4-10.2); Carbon Dioxide 27 mmol/L (22-30); Creatinine 1 0.84 mg/dL (0.66-1.25); EST GLOMERULAR FILTRATION RATE > 60.0 ML/MIN; Glucose 94 mg/dL (74-106); Potassium 3.7 mmol/L (3.5-5.1); SGOT/AST 35 U/L (17-59); SGPT/ALT 22 U/L (0-50); SODIUM 137 mmol/L (137-145)
[2020-02-05] MEDS: Carafate 1 GM PO SCH ×4 (07:55→19:30)
[2020-02-05] MEDS: Sodium Chloride 0.9% W/ 20 mEq KCl/LITER 1,000 ML IV SCH ×2 (08:05→18:19)
[2020-02-05] MEDS: PROTONIX 40 MG IV IV SCH (10:53)
[2020-02-05] MEDS: VITAMIN B-1 100 MG PO SCH (10:54)
[2020-02-06] MEDS: Sodium Chloride 0.9% W/ 20 mEq KCl/LITER 1,000 ML IV SCH ×2 (03:52→05:06)
[2020-02-06] MEDS: Carafate 1 GM PO SCH (07:47)
[2020-02-06 07:58] VITALS: BP 117/86; PULSE 88; O2SAT 98
--- NOTE | 2020-02-06 08:22 | PCM.DS ---
Discharge Summary Date of Admission: 02/03/20 00:14 Admitting Physician: ORLIN BROOKS MD Consults: Consults on Case 02/03/20 14:07 Tele-Health Consult ROUTINE Primary Care Provider: NO FAMILY DOCTOR Allergies Allergies No Known Drug Allergies Allergy (Unverified 02/02/20 18:00) Hospital Summary - Hospital Course Hospital Course: patient was admitted initially with Dr Brooks, hx alcoholism with alcohol intoxication, went through detox protocol. had some suicidal ideation which resolved, [facility] cleared for release and outpatient followup. he is no longer requiring ativan for withdrawal and feels well at the time of discharge. he is ambulatory, tolerating po with no complaints at this time. - Vitals & Intake/Output Vital Signs: Vital Signs Temperature 98.6 F 02/06/20 07:57 Pulse Rate 88 02/06/20 07:57 Respiratory Rate 16 02/06/20 07:57 Blood Pressure 117/86 02/06/20 07:57 O2 Sat by Pulse Oximetry 98 02/06/20 07:57 Intake & Output: Intake & Output 02/03/20 02/04/20 02/05/20 02/06/20 11:59 11:59 11:59 11:59 Intake Total 360 2416 2707 2590 Output Total 250 1400 2500 Balance 360 2166 1307 90 Weight 64.9 kg 65.7 kg 64.5 kg 65.5 kg - Lab Result Diagrams: 02/05/20 05:15 02/05/20 05:15 Discharge Exam General Appearance: no apparent distress, alert Neurologic Exam: alert, oriented x 3, cooperative, normal mood/affect, nml cerebellar function, sensation nml, No motor deficits Eye Exam: PERRL, EOMI, eyes nml inspection Respiratory Exam: normal breath sounds, lungs clear, No respiratory distress Cardiovascular Exam: regular rate/rhythm, normal heart sounds Gastrointestinal/Abdomen Exam: soft, No tenderness, No mass Extremity Exam: normal inspection, normal range of motion Skin Exam: normal color, warm, dry Final Diagnosis/Problem List - Final Discharge Diagnosis/Problem (1) Alcohol withdrawal Current Visit: Yes Status: Acute Assessment & Plan: detox complete, will attent outpatient alcohol treatment with [facility] Code(s): F10.239 - ALCOHOL DEPENDENCE WITH WITHDRAWAL, UNSPECIFIED (2) Alcohol abuse Current Visit: Yes Status: Acute Code(s): F10.10 - ALCOHOL ABUSE, UNCOMPLICATED (3) Suicidal ideation Current Visit: Yes Status: Acute Assessment & Plan: resolved, cleared by psych for discharge. Code(s): R45.851 - SUICIDAL IDEATIONS - Discharge Disposition: Home, Self-Care Condition: Stable Prescriptions: No Action No Reportable Medications [No Reported Medications] Additional Instructions: Please call [facility] to make an outpatient appointment at [phone]. Follow up with: ORLIN BROOKS MD [ACTIVE STAFF] -
[2020-02-06] MEDS: VITAMIN B-1 100 MG PO SCH (09:11)
[2020-02-06] MEDS: PROTONIX 40 MG IV IV SCH (09:11)
[2020-02-06] MEDS: Nicoderm CQ 21 MG TOP SCH (09:11)
== END 2020-02-06 09:58 | disposition home or self-care (01) | DRG 897 ==
LOC: ED 17:57 → ICU 02-03 00:14 → OBSVTOIN 02-04 10:32
PROVIDERS: ADMIT Family Medicine; ATTEND Family Medicine
DX: F10.239 Alcohol dependence with withdrawal, unspecified (principal); R45.851 Suicidal ideations; K92.1 Melena; F41.9 Anxiety disorder, unspecified; F32.9 Major depressive disorder, single episode, unspecified
CPT/HCPCS: 36415; 80048; 80053; 80307; 81001; 82274; 85025; 85027; 85610; 93268; 99285; J2060; J2405; Q0162; A9270-GY; G0328; G0378; G0480

== ENCOUNTER → 2020-08-23 | Emergency (ER) | payer OTHER | END | disposition left against medical advice (07) | LOC: ED 23:11 | DX: Z53.9 Procedure and treatment not carried out, unspecified reason (principal) ==